=== PATIENT | male | born 1945 | race African-American/Black ===

== ENCOUNTER → 2016-12-15 | Outpatient (CLI) | payer MEDICARE, OTHER ==
[~2016-12-15] VITALS: Ht 177.8 cm; Wt 90.7 kg
[~2016-12-15] MED LIST: ALDACTONE25 MG PO; ALEVE220 MG PO; AMARYL2 MG PO; ASPIRIN325 PO; BAYER CHEWABLE81 MG PO; CARVEDILOL6.25 MG PO; COREG3.125 MG PO; COZAAR 25 MG TA25 MG PO; COZAAR 50 MG TA50 M1 PO; GLUCOPHAGE500 MG PO; HYDROCODONE-APA1 TA1 PO; JANUVIA100 MG PO; JANUVIA25 MG PO; KLOR-CON 1010 MEQ PO; LEVITRA20 MG PO; LISINOPRIL2.5 M1 PO; LISINOPRIL2.5 MG PO; METFORMIN HCL500 MG PO; METHIMAZOLE10 MG PO; MOBIC15 MG PO; MOBIC7.5 MG PO; NEURONTIN 300300 M1 PO; NORCO 10-325 T1 EACH PO; NORCO 7.5-3251 EACH PO; OXYCODONE-ACET1 EACH PO; OXYCODONE-APAP1 EAC6 PO; PACERONE 200 M200 M1 PO; PAROXETINE HCL40 MG PO; PAXIL10 MG; PERCOCET 7.5-31 EAC1 PO; PERCOCET 7.5-31 EACH PO; SOTALOL 120 MG120 M1 PO; TORSEMIDE20 MG PO; TRAMADOL 50 MG50 MG PO; XANAX 0.25 MG0.25 MG PO; XANAX 0.5 MG0.5 MG PO
--- NOTE | ~2016-12-15 | HPC ---
[facility] [place] [address] PAIN MANAGEMENT CONSULTATION Name: CR CAZARES Room #: BASSEM MANUELA Palm#: [id number] Admission: 12/15/16 Attend Phys: Mat Acosat DO Discharge: Date of : 46 Report #: [id number] THIS REPORT FOR: //name// CC: Johnson Acosta DATE OF SERVICE: 12/15/2016 The patient is a very pleasant 71-year-old gentleman well known to pain clinic, being treated for lumbar radiculopathy, history of cervical decompressive laminectomy and neuropathic pain, requiring complex medication management. Comorbidity includes coronary artery disease. Last seen in the pain clinic on 12/13/2015, continued on Percocet 7.5/325 four a day and gabapentin 300 mg b.i.d., meloxicam we suggested using on a nondaily basis in consideration of a history of cardiac disease. The patient returns to pain clinic today noting while medications are providing sufficient analgesia to participate in activities of daily living, he is having increasing axial and lumbar radicular pain. He had a prior lumbar epidural injection some 6 months ago with overall improvement of baseline pain. Last urine drug screen on 08/11/2016 was positive for prescribed medications. PHYSICAL EXAMINATION: Shows a 71-year-old gentleman, alert and oriented to person, place, and time, judged to be a reasonable historian. Vital signs stable as noted on the EMR. Rises from chair using armrest. Gait is tandem though he does have some diffuse tenderness across the low back, mildly antalgic gait, positive straight leg raise on the right. Cervical range of motion is adequate status post decompressive laminectomy. He had fairly tight stenosis and developed some myelopathic symptoms that seems to be resolving somewhat and his gait is better, less ataxia. We reviewed the fact that opiate medications are being used to provide analgesia adequate to support activities of daily living, not attempting to achieve a specific pain score on the 0-10 Visual Analog Scale. The current opiate medications are providing sufficient analgesia to allow the patient to participate in activities of daily living. The patient is not exhibiting any aberrant behavior suggestive of drug diversion. The patient is not having any adverse reactions to medications. The patient is not suffering from daytime somnolence or mental acuity changes. The patient is managing opiate-induced constipation with appropriate ltuf-tas-kqvbmar agents and dietary considerations. The patient was counseled on concern for caution with operating a motor vehicle while using opiate medications. A physical exam was performed and the patient's functional status was evaluated. All patients with back pain were advised against the bed rest greater than 4 days and were advised to return to normal activities. [place] [address] PAIN MANAGEMENT CONSULTATION Name: SAGECR Willie Room #: REG MANUELA Palm#: [id number] Admission: 12/15/16 Attend Phys: Mat Acosta DO Discharge: Date of : 46 Report #: [id number] noted and the treatment plan was reviewed with the patient. All current medications, both prescribed and OTC were reviewed and reconciled on the electronic medical record. Tobacco screening was accomplished and smoking cessation was advised when indicated. BMI was noted and diet/exercise modification was recommended for all patients following outside normal parameters. I reviewed with the patient today their responsibilities to safeguard prescription medications, reviewed their responsibility to utilize medications only as prescribed by the physician. They are to seek and receive pain medications only from 1 physician group ( [facility]). They are to use 1 pharmacy and keep the clinic informed if they change pharmacies. Their responsibilities include making followup visits in a timely fashion and to avoid abrupt discontinuation of medication usage. Their responsibilities further include bringing their medications (bottles from the pharmacy with residual pills) to the visit for possible confirmation of pill counts and the patient understands it is their responsibility to submit to random drug screens to ensure both that the medications prescribed are present, and that no other controlled substances are present. All prescriptions provided today were generated electronically. ASSESSMENT: 1. Status post cervical decompressive laminectomy and neuropathic pain, requiring complex medication management, stable on Percocet 7.5/325 four a day and gabapentin 300 mg b.i.d. Recommended to use meloxicam 15 mg, not more than once daily and suggest not daily use, simply more as needed for muscle of pain. 2. Acute exacerbation of lumbar radiculopathy. RECOMMENDATION: Lumbar epidural injection under fluoroscopy today at L5-S1. We will use 60 mg triamcinolone in consideration of prior diabetes. PROCEDURE: Lumbar epidural injection under fluoroscopy. PROCEDURE NOTE: After both written and informed consent to include risk of spinal cord damage, increased pain, weakness and dural puncture, the patient was taken to the fluoroscopy suite, placed in the prone position. After sterile prep and drape, a skin wheal with lidocaine was raised. A 22-gauge epidural Tuohy needle was inserted in the midline at L5-S1 with good loss to resistance. Negative aspiration for cerebrospinal fluid or blood was noted. Then 1 mL of Omnipaque under biplanar fluoroscopy showed good spread within the epidural space. This was followed with 60 mg of triamcinolone plus 1 mL of 1.5% preservative-free Xylocaine, 0.5 mL Xylocaine was then injected to flush the [facility] [address] [place] [address] PAIN MANAGEMENT CONSULTATION Name: CR CAZARES Room #: [facility].#: [id number] Admission: 12/15/16 Attend Phys: Mat Acosta DO Discharge: Date of : 46 Report #: [id number] needle; it was removed. The patient was monitored for an appropriate period of time and discharged in good and stable condition. <ELECTRONICALLY SIGNED> By: Mat Acosta DO 12/19/16 0811 1526 Mat Acosta DO /nt
[2016-12-15 12:52] VITALS: BP 147/90
== END | disposition home or self-care (01) ==
LOC: PAIN 07:06
DX: M54.16 Radiculopathy, lumbar region (principal); I25.10 Atherosclerotic heart disease of native coronary artery without angina pectoris

== ENCOUNTER → 2017-02-16 | Outpatient (CLI) | payer MEDICARE, OTHER ==
[~2017-02-16] VITALS: Ht 177.8 cm; Wt 91.0 kg
--- NOTE | ~2017-02-16 | HPC ---
[facility] [place] [address] PAIN MANAGEMENT CONSULTATION Name: SAGECR Willie Room #: BASSEM Palm#: [id number] Admission: 02/16/17 Attend Phys: Mat Acosta DO Discharge: Date of : 46 Report #: [id number] THIS REPORT FOR: //name// CC: Johnson Acosta The patient is a very pleasant 72-year-old gentleman, being treated for symptomatic cervical radiculopathy status post decompressive laminectomy, history of lumbar radiculopathy, requiring complex medication management. Last seen in the pain clinic 12/15/2016. The patient was continued on baseline medication including Percocet 7.5/325 up to 4 a day, gabapentin 300 mg b.i.d. We suggested he take Meloxicam on a nondaily basis due to history of coronary artery disease, did do an epidural injection at L5-S1. Prior urine drug screen 08/11/2016, was positive for prescribed medications. He returns to pain clinic today, notes that the epidural injection afforded good relief, greater than 60%, but still has ongoing pain, low back, right leg to the knee. noticing some fairly significant lower extremity edema. He has +2 ballotable edema in lower extremity. He states this has been present for perhaps a couple of months, seems to be getting worse. PHYSICAL EXAMINATION: Shows a 72-year-old gentleman, BMI is 28.8 kg/m2. Blood pressure is modestly elevated at 164/95, pulse 118, and respirations 16. Alert and oriented to person, place and time, judged to be a reasonable historian. Upper extremity strength is generally preserved. Rises from chair using armrest. Generally tandem gait, though he has had some issues with balance in the past, does not seem to be present at this time, though again fairly significant edema in lower extremities, about +2 bilaterally, perhaps a little worse on the right than left. We reviewed the fact that opiate medications are being used to provide analgesia adequate to support activities of daily living, not attempting to achieve a specific pain score on the 0-10 Visual Analog Scale. The current opiate medications are providing sufficient analgesia to allow the patient to participate in activities of daily living. The patient is not exhibiting any aberrant behavior suggestive of drug diversion. The patient is not having any adverse reactions to medications. The patient is not suffering from daytime somnolence or mental acuity changes. The patient is managing opiate-induced constipation with appropriate huyq-nbb-mklnftk agents and dietary considerations. The patient was counseled on concern for caution with operating a motor vehicle while using opiate medications. A physical exam was performed and the patient's functional status was evaluated. All patients with back pain were advised against the bed rest greater than 4 days and were advised to return to normal activities. Pain score assessment was [address] [address] PAIN MANAGEMENT CONSULTATION Name: CR CAZARES Room #: REG Che Palm#: [id number] Admission: 02/16/17 Attend Phys: Mat Acosta DO Discharge: Date of : 46 Report #: [id number] noted and the treatment plan was reviewed with the patient. All current medications, both prescribed and OTC were reviewed and reconciled on the electronic medical record. Tobacco screening was accomplished and smoking cessation was advised when indicated. BMI was noted and diet/exercise modification was recommended for all patients following outside normal parameters. I reviewed with the patient today their responsibilities to safeguard prescription medications, reviewed their responsibility to utilize medications only as prescribed by the physician. They are to seek and receive pain medications only from 1 physician group ( [facility]). They are to use 1 pharmacy and keep the clinic informed if they change pharmacies. Their responsibilities include making followup visits in a timely fashion and to avoid abrupt discontinuation of medication usage. Their responsibilities further include bringing their medications (bottles from the pharmacy with residual pills) to the visit for possible confirmation of pill counts and the patient understands it is their responsibility to submit to random drug screens to ensure both that the medications prescribed are present, and that no other controlled substances are present. All prescriptions provided today were generated electronically. ASSESSMENT: Chronic pain syndrome requiring complex medication management, status post cervical decompressive laminectomy, history of lumbar radiculopathy. RECOMMENDATIONS: 1. Renew Percocet 7.5/325 up to 4 a day, I have taken the liberty of writing for 2 months of current medication. 2. The patient tells me he actually ran out of his gabapentin about 4 days ago, I will have him hold gabapentin for another month and ask him to hold Meloxicam as well. If in 30 days his pain is increased, I will have him back his "4-week release Percocet prescription" for reevaluation. Hopefully; however, pain will remain relatively unchanged and edema may improve. If he discontinues Meloxicam and gabapentin for 4 weeks and lower extremity edema remains problematic, we will have him follow up with his physician for further workup. By: [id number] Mat Acosta, /nt
[2017-02-16 11:07] VITALS: BP 164/95
== END | disposition home or self-care (01) ==
LOC: PAIN 12-25 07:49
DX: G89.4 Chronic pain syndrome (principal); M54.16 Radiculopathy, lumbar region; Z98.890 Other specified postprocedural states; F11.20 Opioid dependence, uncomplicated; F17.210 Nicotine dependence, cigarettes, uncomplicated

== ENCOUNTER → 2017-04-15 | Outpatient (CLI) | payer MEDICARE, OTHER ==
[~2017-04-15] VITALS: Ht 175.3 cm; Wt 88.7 kg
--- NOTE | ~2017-04-15 | HPC ---
[facility] [place] [address] PAIN MANAGEMENT CONSULTATION Name: CR CAZARES Room #: REG [facility] Arpita#: [id number] Admission: 04/15/17 Attend Phys: Davide Jha MD Discharge: Date of : 46 Report #: [id number] THIS REPORT FOR: //name// CC: Davide Mckenna DATE OF SERVICE: 04/15/2017 FOLLOWUP COMPLAINT: "Here for medications." FOLLOWUP HISTORY: The patient is a 72-year-old gentleman who has been seen in the pain clinic because of lumbar radiculopathy. He has undergone treatment. He finds that his pain has improved since the initial visit. Pain in his low back area has improved. He rates his pain as 5-6 at this point; standing, walking and lifting can exacerbate this pain. He is still having some pain down into the right leg to the level of the knee. He feels that the medications are efficacious. There are to any problems with sedation or confusion. He is able to engage in activities of daily living and do more with the medications than he is without them. PHYSICAL EXAMINATION: Blood pressure 122/86, pulse 113, respiratory rate 16, room air saturation is 98%. Height 5 feet 9 inches, weight 88 kilograms, BMI is 28. The patient has not fallen since we saw him last. He feels that he has had greater than 50% improvement in his pain. IMPRESSION: 1. Lumbar radiculopathy, improved with epidural steroid injection. 2. Status post cervical decompression, laminectomy and neuropathic pain, requiring complex medication management. RECOMMENDATIONS: We discussed treatment options with the patient. A script for his medication of Percocet has been written. The patient will follow up in the future with Dr. Acosta. We would like to thank you for letting us participate in his care. We hope he continues to improve. By: [id number] Davide Jha MD /nt
[2017-04-15 08:45] VITALS: BP 122/86
== END | disposition home or self-care (01) ==
LOC: PAIN 06:07
DX: M54.16 Radiculopathy, lumbar region (principal); F17.200 Nicotine dependence, unspecified, uncomplicated; G89.29 Other chronic pain; Z98.890 Other specified postprocedural states

== ENCOUNTER → 2017-06-19 | Outpatient (CLI) | payer MEDICARE, OTHER ==
[~2017-06-19] VITALS: Ht 177.8 cm; Wt 87.1 kg
[~2017-06-19] MED LIST changes: +LASIX 40 MG TAB40 M2 PO
--- NOTE | ~2017-06-19 | HPC ---
[facility] [address] [address] PAIN MANAGEMENT CONSULTATION Name: SAGECR Willie Room #: BASSEM MANUELA Palm#: [id number] Admission: 06/19/17 Attend Phys: Mat Acosta DO Discharge: Date of : 46 Report #: [id number] THIS REPORT FOR: //name// CC: Johnson Acosta The patient is a 72-year-old gentleman known to the pain clinic, typically treated for lumbar radiculopathy, history of cervical decompressive laminectomy for myelopathic symptoms requiring complex medication management. 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 Returns to pain clinic today. He saw my partner Dr. Ty Jha back in March. He has continued on his baseline narcotic including Percocet 7.5/325 four a day, gabapentin 300 mg b.i.d., and meloxicam p.r.n. His pain today is 6-7 on a VAS. PHYSICAL EXAMINATION: Vital signs are stable as noted on the EMR. Rises from chair using armrest. Gait is tandem. He is lucid. Alert and oriented. He is seen in the company of his today, he was supportive. She had been involved in a significant motor vehicle accident with some cervical cord trauma. She is actually doing better. The patient states medications are helpful enabling him to participate in activities of daily living. Chronic low back, right leg pain remains somewhat problematic. He has not had a fall since we last saw him. He continues to smoke and was counseled regarding same. We reviewed the fact that opiate medications are being used to provide analgesia adequate to support activities of daily living, not attempting to achieve a specific pain score on the 0-10 Visual Analog Scale. The current opiate medications are providing sufficient analgesia to allow the patient to participate in activities of daily living. The patient is not exhibiting any aberrant behavior suggestive of drug diversion. The patient is not having any adverse reactions to medications. The patient is not suffering from daytime somnolence or mental acuity changes. The patient is managing opiate-induced constipation with appropriate sxzy-lmz-mdrxxgc agents and dietary considerations. The patient was counseled on concern for caution with operating a motor vehicle while using opiate medications. A physical exam was performed and the patient's functional status was evaluated. All patients with back pain were advised against the bed rest greater than 4 days and were advised to return to normal activities. Pain score assessment was noted and the treatment plan was reviewed with the patient. All current medications, both prescribed and OTC were reviewed and reconciled on the electronic medical record. Tobacco screening was accomplished and smoking cessation was advised when indicated. BMI was noted and diet/exercise modification was recommended for all patients following outside normal parameters. [address] [address] PAIN MANAGEMENT CONSULTATION Name: SAGECR Willie Room #: REG MANUELA Palm#: [id number] Admission: 06/19/17 Attend Phys: Mat Acosta DO Discharge: Date of : 46 Report #: [id number] I reviewed with the patient today their responsibilities to safeguard prescription medications, reviewed their responsibility to utilize medications only as prescribed by the physician. They are to seek and receive pain medications only from 1 physician group ( [facility]). They are to use 1 pharmacy and keep the clinic informed if they change pharmacies. Their responsibilities include making followup visits in a timely fashion and to avoid abrupt discontinuation of medication usage. Their responsibilities further include bringing their medications (bottles from the pharmacy with residual pills) to the visit for possible confirmation of pill counts and the patient understands it is their responsibility to submit to random drug screens to ensure both that the medications prescribed are present, and that no other controlled substances are present. All prescriptions provided today were generated electronically. ASSESSMENT: Symptomatic lumbar radiculopathy, history of cervical decompressive laminectomy for myelopathic symptoms requiring high risk / complex medication management. RECOMMENDATIONS: Continue current medications unchanged, again last urine drug screen 08/11/2016, positive for prescribed medications. I have taken the liberty of writing for 2 months of current medication including Percocet 7.5/325 one tablet up to 4 times a day. <ELECTRONICALLY SIGNED> By: Mat Acosta DO 06/24/17 0755 [id number] 1237 Mat Acosta DO /nt
[2017-06-19 12:48] VITALS: BP 136/90
== END | disposition home or self-care (01) ==
LOC: PAIN 07:19
DX: Z76.0 Encounter for issue of repeat prescription (principal); M54.16 Radiculopathy, lumbar region; G89.29 Other chronic pain; F17.210 Nicotine dependence, cigarettes, uncomplicated; Z79.891 Long term (current) use of opiate analgesic; Z98.890 Other specified postprocedural states

== ENCOUNTER → 2017-08-27 | Outpatient (CLI) | payer MEDICARE, OTHER ==
[~2017-08-27] VITALS: Ht 177.8 cm; Wt 90.9 kg
--- NOTE | ~2017-08-27 | HPC ---
[facility] [address] [place] [address] PAIN MANAGEMENT CONSULTATION Name: CR CAZARES Room #: BASSEM Palm#: [id number] Admission: 08/27/17 Attend Phys: Mat Acosta DO Discharge: Date of : 46 Report #: [id number] THIS REPORT FOR: //name// CC: Johnson Acosta The patient is a 72-year-old gentleman being treated for symptomatic lumbar radiculopathy, history of cervical decompressive laminectomy for myelopathic component, requiring high risk complex medication management. The patient was last seen in the pain clinic 06/19/2017, continued on Percocet 7.5/325. He takes up to 4 a day. Last urine drug screen 08/11/2016, was positive for prescribed medications. He returns to pain clinic today noting medications continue to provide sufficient analgesia to participate in activities of daily living, but he is having some increasing pain in the left low back and leg. He also tells me concerningly that he is developing a little stool incontinence. He states when he urinates, he will sometimes have a small seepage of fecal material. He states he is not having any insensate incontinence per se, he still is aware of the sensation that he has to have a bowel movement, he does not have any saddle anesthesia. I am not entirely clear what to make of this. He notes that the ongoing left lumbar radicular pain is increasing, prior injection back in November did afford sonme 60 percent relief for several months. PHYSICAL EXAMINATION: Otherwise shows a pleasant 72-year-old gentleman, BMI is 28.8 kilograms per meter squared. Modestly limited cervical range of motion after his cervical surgery. VAS pain score is 9 today. Blood pressure is 158/81, pulse 99, and respirations 16. Rises from chair using armrest. Slight decreased left plantar flexion strength and lower extremity flexion strength. Positive straight leg raise on the left at 30 degrees. Again, Achilles and patellar reflexes are diminished on the left, but no hyporeflexia is noted. ASSESSMENT: Symptomatic lumbar radiculopathy by clinical exam and history. The patient is status post cervical decompressive laminectomy, requiring high risk complex medication management. RECOMMENDATION: 1. Continue Percocet 7.5/325 up to 4 a day, I have taken the liberty of writing for 2 months of current medication. 2. Acute exacerbation of lumbar radicular symptoms. We will repeat epidural injection under fluoroscopy today at L5-S1. 3. 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 If he continues unabated with no obvious other medical issues, we will need to repeat an MRI of the lumbar spine to make sure we are not overlooking any treatalbe causes of myelopathic type symptoms. [address] [address] PAIN MANAGEMENT CONSULTATION Name: CR CAZARES Room #: REG MANUELA Palm#: [id number] Admission: 08/27/17 Attend Phys: Mat Acosta DO Discharge: Date of : 46 Report #: [id number] PROCEDURE: Lumbar epidural injection under fluoroscopy. PROCEDURE NOTE: After both written and informed consent to include risk of spinal cord damage, increased pain, weakness and dural puncture, the patient was taken to the fluoroscopy suite, placed in the prone position. After sterile prep and drape, a skin wheal with lidocaine was raised. A 22-gauge epidural Tuohy needle was inserted in the midline at L5-S1 with good loss to resistance. Negative aspiration for cerebrospinal fluid or blood was noted. Then 1 mL of Omnipaque under biplanar fluoroscopy showed good spread within the epidural space. This was followed with 80 mg of triamcinolone plus 1 mL of 1.5% preservative-free Xylocaine, 0.5 mL Xylocaine was then injected to flush the needle; it was removed. The patient was monitored for an appropriate period of time and discharged in good and stable condition. <ELECTRONICALLY SIGNED> By: Mat Acosta DO 08/28/17 0949 [id number] [id number] Mat Acosta DO /nt
[2017-08-27 13:11] VITALS: BP 158/81
== END | disposition home or self-care (01) ==
LOC: PAIN 07:11
DX: M54.16 Radiculopathy, lumbar region (principal); Z98.890 Other specified postprocedural states; F17.200 Nicotine dependence, unspecified, uncomplicated

== ENCOUNTER → 2017-11-06 | Outpatient (CLI) | payer MEDICARE ==
[~2017-11-06] VITALS: Ht 177.8 cm; Wt 84.4 kg
[~2017-11-06] MED LIST changes: +FLOMAX0.4 MG PO; +HYDRALAZINE HC100 MG PO; +ISOSORBIDE DINI20 M2 PO; +METOPROLOL SUCC50 MG PO; +PRILOSEC 20 MG20 MG PO; +REPAGLINIDE2 MG PO; +XARELTO20 MG PO
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
[2017-11-06 10:31] VITALS: BP 116/70
== END ==
LOC: PAIN 07:39
DX: M54.16 Radiculopathy, lumbar region (principal); M50.01 Cervical disc disorder with myelopathy, high cervical region; Z98.890 Other specified postprocedural states

== ENCOUNTER → 2018-01-21 | Outpatient (CLI) | payer MEDICARE ==
[~2018-01-21] VITALS: Ht 177.8 cm; Wt 82.1 kg
--- NOTE | ~2018-01-21 | HPC ---
[facility] [address] [place] [address] PAIN MANAGEMENT CONSULTATION Name: CR CAZARES Room #: BASSEM MANUELA Palm#: [id number] Admission: 01/21/18 Attend Phys: Mat Acosta DO Discharge: Date of : 46 Report #: [id number] THIS REPORT FOR: //name// CC: Johnson Acosta The patient is a 73-year-old gentleman last seen in the pain clinic on 11/06/2017. The patient was continued on Percocet 7.5/325 four a day for ongoing cervical radicular symptoms along with axial back pain. The patient unfortunately fell last with acute exacerbation of right low back pain. He prior had relatively urgent cervical decompressive laminectomy when he was becoming somewhat myelopathic. He still has a little bit of an ataxic gait. Rates the pain as an 8-9 on a VAS at present. He is on Xarelto for an irregular heartbeat. Last random drug screen on 11/06/2017 was positive for prescribed medications. We reviewed the fact that opiate medications are being used to provide analgesia adequate to support activities of daily living, not attempting to achieve a specific pain score on the 0-10 Visual Analog Scale. The current opiate medications are providing sufficient analgesia to allow the patient to participate in activities of daily living. The patient is not exhibiting any aberrant behavior suggestive of drug diversion. The patient is not having any adverse reactions to medications. The patient is not suffering from daytime somnolence or mental acuity changes. The patient is managing opiate-induced constipation with appropriate xbwq-wwy-wzuuprl agents and dietary considerations. The patient was counseled on concern for caution with operating a motor vehicle while using opiate medications. A physical exam was performed and the patient's functional status was evaluated. All patients with back pain were advised against the bed rest greater than 4 days and were advised to return to normal activities. Pain score assessment was noted and the treatment plan was reviewed with the patient. All current medications, both prescribed and OTC were reviewed and reconciled on the electronic medical record. Tobacco screening was accomplished and smoking cessation was advised when indicated. BMI was noted and diet/exercise modification was recommended for all patients following outside normal parameters. I reviewed with the patient today their responsibilities to safeguard prescription medications, reviewed their responsibility to utilize medications only as prescribed by the physician. They are to seek and receive pain medications only from 1 physician group ( [facility]). They are to use 1 pharmacy and keep the clinic informed if they change pharmacies. Their responsibilities include making followup visits in a timely fashion and to avoid abrupt discontinuation of medication usage. Their responsibilities further include bringing their medications (bottles from the pharmacy with residual pills) to the visit for possible confirmation of pill counts and the patient understands it is their responsibility to submit to random drug screens to [address] [address] PAIN MANAGEMENT CONSULTATION Name: SAGECR Willie Room #: REG MANUELA Palm#: [id number] Admission: 01/21/18 Attend Phys: Mat Acosta DO Discharge: Date of : 46 Report #: [id number] ensure both that the medications prescribed are present, and that no other controlled substances are present. All prescriptions provided today were generated electronically. Physical examination shows 73-year-old gentleman, BMI is 26 kilograms per meter squared. Functional pain impact score is 20/70. Blood pressure is 107/62, pulse 95 and respirations 16. He uses a cane for balance. Medication list was reconciled, he is treated for hypertension. Opiate consent to treat contract was signed on 06/12/2016. He scores in the low risk assessment, prior concern for ethanol use in the distant past. 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 ASSESSMENT: Symptomatic axial back pain, history of myelopathy, status post cervical decompressive laminectomy requiring complex medication management. RECOMMENDATIONS: Continue Percocet 7.5/325 four a day. I have taken the liberty of writing for 2 months of current medication. Follow up at that time or earlier if needed. <ELECTRONICALLY SIGNED> By: Mat Acosta DO 01/22/18 0704 [id number] [id number] Mat Acosta DO /nt
[2018-01-21 12:37] VITALS: BP 107/62
== END ==
LOC: PAIN 06:58
DX: M54.12 Radiculopathy, cervical region (principal); M54.5 Low back pain; Z79.899 Other long term (current) drug therapy

== ENCOUNTER → 2018-05-20 | Outpatient (CLI) | payer MEDICARE ==
[~2018-05-20] VITALS: Ht 177.8 cm; Wt 86.5 kg
[~2018-05-20] MED LIST changes: -PRILOSEC 20 MG20 MG PO
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
[2018-05-20 10:35] VITALS: BP 106/62
== END ==
LOC: PAIN 07:07
DX: M54.16 Radiculopathy, lumbar region (principal); M54.5 Low back pain; M48.061 Spinal stenosis, lumbar region without neurogenic claudication; G89.4 Chronic pain syndrome; Z79.899 Other long term (current) drug therapy

== ENCOUNTER → 2018-05-24 | Outpatient (CLI) | payer MEDICARE ==
[~2018-05-24] VITALS: Ht 177.8 cm; Wt 84.8 kg
--- NOTE | ~2018-05-24 | HPC ---
[address] [place] [address] PAIN MANAGEMENT CONSULTATION Name: CR CAZARES Room #: BASSEM Palm#: [id number] Admission: 05/24/18 Attend Phys: Mat Acosta DO Discharge: Date of : 46 Report #: [id number] THIS REPORT FOR: //name// CC: Johnson Acosta DATE OF SERVICE: 05/24/2018 The patient is a very pleasant 73-year-old gentleman, prior seen for chronic medication management 05/20/2018, continued on baseline narcotic unchanged. He had acute exacerbation of lumbar radicular symptoms. We elected to proceed with epidural injection off Xarelto 3 days. The patient presents to pain clinic today for said injection. Prior epidural injection in 08/2017 afforded very good relief for a number of months. ASSESSMENT: Symptomatic lumbar radiculopathy by clinical exam and history in a gentleman whose presentation today is unchanged from 05/20/2018. RECOMMENDATION: Procedure lumbar epidural injection under fluoroscopy, resume Xarelto tonight. PROCEDURE: Lumbar epidural injection under fluoroscopy. PROCEDURE NOTE: After both written and informed consent to include risk of spinal cord damage, increased pain, weakness and dural puncture, the patient was taken to the fluoroscopy suite, placed in the prone position. After sterile prep and drape, a skin wheal with lidocaine was raised. A 22-gauge epidural Tuohy needle was inserted in the midline at L5-S1 with good loss to resistance. Negative aspiration for cerebrospinal fluid or blood was noted. Then 1 mL of Omnipaque under biplanar fluoroscopy showed good spread within the epidural space. This was followed with 80 mg of triamcinolone plus 1 mL of 1.5% preservative-free Xylocaine, 0.5 mL Xylocaine was then injected to flush the needle; it was removed. The patient was monitored for an appropriate period of time and discharged in good and stable condition. <ELECTRONICALLY SIGNED> By: Mat Acosta DO 05/26/18 0734 [id number] 1531 Mat Acosta DO /nt
[2018-05-24 10:43] VITALS: BP 119/67
== END | disposition home or self-care (01) ==
LOC: PAIN 07:57
DX: M54.16 Radiculopathy, lumbar region (principal); G89.29 Other chronic pain; F17.210 Nicotine dependence, cigarettes, uncomplicated; Z79.891 Long term (current) use of opiate analgesic; Z79.899 Other long term (current) drug therapy

== ENCOUNTER → 2018-09-29 | Outpatient (CLI) | payer MEDICARE ==
[~2018-09-29] VITALS: Ht 177.8 cm; Wt 84.8 kg
[~2018-09-29] MED LIST changes: +PRILOSEC 20 MG20 MG PO
[2018-09-29 10:26] VITALS: BP 132/67
== END | disposition home or self-care (01) ==
LOC: PAIN 07:21
DX: M54.16 Radiculopathy, lumbar region (principal); G89.29 Other chronic pain; F17.210 Nicotine dependence, cigarettes, uncomplicated; Z79.899 Other long term (current) drug therapy; Z79.01 Long term (current) use of anticoagulants; Z79.891 Long term (current) use of opiate analgesic; Z98.890 Other specified postprocedural states

== ENCOUNTER → 2018-12-08 | Outpatient (CLI) | payer MEDICARE ==
[~2018-12-08] VITALS: Ht 177.8 cm; Wt 84.8 kg
[2018-12-08 09:46] VITALS: BP 130/76
--- NOTE | 2018-12-08 09:49 | NUR ---
Pain Clinic Assessment: 1. History of Osteoarthritis: YES History of Rheumatoid Arthritis: Not Applicable 2. Height: 5 ft. 10 in. 177.8 cm. Weight: 187.0 lb. oz. 84.823 kg. Patient's BMI: 26.8 3. Vital Signs: BP: 130/76 Pulse: 63 Resp: 14 Temp: 02 Sat: 99 ECG Mon: 4. Pain Intensity: 8 5. Fall Risk: Dizziness: N Needs help standing or walking: N Fallen in the last 3 months: N Fall risk comments: 6. Patient on Blood Thinner: xarelto 7. History of Hypertension: Y 8. Opioid Therapy greater than 6 weeks: Y Opiate Contract Signed: 06/12/16 9. Risk Assessment Tool Provided: 3 LOW RISK 10. Functional Assessment Tool: / 11. Recreational Drug Use: Never Drug Type: Tobacco Use: Current Every Day Smoker Tobacco Type: Cigarettes Amount or Packs/day: How Many Years: Alcohol Use: Past use Frequency: Quant:
--- NOTE | 2018-12-09 07:37 | HPC ---
[facility] [address] [place] [address] PAIN MANAGEMENT CONSULTATION Name: CR CAZARES Room #: BASSEM Palm#: [id number] Admission: 12/08/18 Attend Phys: Brie Arroyo Discharge: Date of : 47 Report #: [id number] THIS REPORT FOR: //name// CC: Brie Arroyo Johnson Clarisa DATE OF SERVICE: 12/08/2018 CHIEF COMPLAINT: Low back pain. HISTORY OF PRESENT ILLNESS: The patient returns to the pain clinic today, a very pleasant 73-year-old gentleman for his chronic back pain. He had a lumbar epidural steroid injection in September and tells me that he received at least 80% relief, still ongoing for several months. He tells me that that his pain score still has an average of 8 out of 10 despite telling me that his pain is significantly better from his epidural. He said usually that last about 4 months before he would need another injection. So, today he is here for a refill of his oxycodone for his low back, hip pain, leg pain. He tells me it is worse when he is standing still or walking. Shoveling snow recently has increased his back pain, but his medications are very helpful. He denies any constipation or daytime sleepiness. ALLERGIES: No known drug allergies. LIST OF CURRENT MEDICATIONS: Oxycodone 7.5/325 up to 4 times a day, gabapentin 300 mg b.i.d., Prilosec 20 mg daily, lisinopril 2.5 mg at bedtime, metoprolol 50 mg daily, spironolactone 25 mg daily, isosorbide 20 mg daily, Xarelto 20 mg at dinner, hydralazine 100 mg 3 times a day, Lasix 20 mg daily, Xanax 0.5 mg twice a day, Glucophage 500 mg b.i.d., Januvia 100 mg daily, Amaryl 2 mg b.i.d. and Paxil 40 mg at bedtime. PQRS: 1. The patient has a history of osteoarthritis in his knees and his back. Denies rheumatoid arthritis. 2. Height is 5 feet 10 inches, weight is 187, BMI is 26.8. 3. Vital signs: Blood pressure 130/76, pulse of 63, respirations 14, oxygen sat 99%. 4. Pain score is 8 out of 10. 5. Fall risk: He denies dizziness. Does not need help walking or standing, has not fallen in the last 3 months. 6. The patient does take Xarelto and has a history of taking antihypertensive medicines. 7. Opioid therapy is greater than 6 weeks, therefore, an opioid signed contract is on the chart. 8. His risk assessment tool is low. His functional assessment is 56/70. 9. Recreational drug use, he denies. He does currently smoke cigarettes and he [address] [address] PAIN MANAGEMENT CONSULTATION Name: CR CAZARES Room #: REG Che Palm#: [id number] Admission: 12/08/18 Attend Phys: Brie Arroyo Discharge: Date of : 47 Report #: [id number] does not drink alcohol on a daily basis. We did check the prescription monitoring system. The patient is fairly appropriate with his medications from Dr. Jha, no aberrant behavior noted. He tells me that he does safeguard his medications. There is a drug screen on the chart that is appropriate. PHYSICAL EXAMINATION: GENERAL: This is a well-developed, well-nourished black gentleman who appears his stated age. He is alert and orientated x 3. His affect is appropriate. His speech is fluent. He is a good historian. HEENT: Normocephalic, atraumatic. Extraocular eye muscles are intact. NECK: He is without adenopathy or JVD in his neck. EXTREMITIES: His upper muscle strength judged to be 5/5 in upper extremities bilaterally. He is without kyphosis, lordosis, or scoliosis. He does complain of some discomfort in his lower back that radiates into bilateral hips and legs. The patient does walk with an antalgic gait. ASSESSMENT: 1. Chronic pain, treated with complex medical management using opioids. 2. Lumbar radiculopathy. 3. Atrial tachycardia. 4. Congestive heart failure. 5. Cardiomegaly. 6. Renal insufficiency. 7. Diabetes. 8. Anxiety. 9. Chronic pain syndrome. 10. Depression. 11. Chronic low back pain. We reviewed the fact that opiate medications are being used to provide analgesia adequate to support activities of daily living, not attempting to achieve a specific pain score on the 0-10 Visual Analog Scale. The current opiate medications are providing sufficient analgesia to allow the patient to participate in activities of daily living. The patient is not exhibiting any aberrant behavior suggestive of drug diversion. The patient is not having any adverse reactions to medications. The patient is not suffering from daytime somnolence or mental acuity changes. The patient is managing opiate-induced constipation with appropriate hcnm-mjh-mwtzbdo agents and dietary considerations. The patient was counseled on concern for caution with operating a motor vehicle while using opiate medications. A physical exam was performed and the patient's functional status was evaluated. All patients with back pain were advised against the bed rest greater than 4 days and were advised to return to normal activities. Pain score assessment was [address] [place] [address] PAIN MANAGEMENT CONSULTATION Name: CR CAZARES Room #: REG [facility].#: [id number] Admission: 12/08/18 Attend Phys: Brie ANU Arroyo Discharge: Date of : 47 Report #: [id number] noted and the treatment plan was reviewed with the patient. All current medications, both prescribed and OTC were reviewed and reconciled on the electronic medical record. Tobacco screening was accomplished and smoking cessation was advised when indicated. BMI was noted and diet/exercise modification was recommended for all patients following outside normal parameters. I reviewed with the patient today their responsibilities to safeguard prescription medications, reviewed their responsibility to utilize medications only as prescribed by the physician. They are to seek and receive pain medications only from 1 physician group ( [facility]). They are to use 1 pharmacy and keep the clinic informed if they change pharmacies. Their responsibilities include making followup visits in a timely fashion and to avoid abrupt discontinuation of medication usage. Their responsibilities further include bringing their medications (bottles from the pharmacy with residual pills) to the visit for possible confirmation of pill counts and the patient understands it is their responsibility to submit to random drug screens to ensure both that the medications prescribed are present, and that no other controlled substances are present. All prescriptions provided today were generated electronically. PLAN: 1. We discussed treatment options with the patient today. He tells me that the Percocet 7.5 has been helping him reduce his pain and be as active as he is able. He would like a continuation this medicine. Script was given today for #120 with fills for today and in 4 weeks. 2. The patient tells me that he does take the gabapentin twice a day, but does not need any refills of this medication today. 3. We discussed appointments for 2 months. He will call to let us know if he needs an injection at that time or medication refills. He typically gets lumbar epidural steroid injections every 4 months, which would be about that timeframe. The patient is seen in collaboration today with Dr. Inder Jha. <ELECTRONICALLY SIGNED> By: Brie Arroyo 12/09/18 0737 [id number] Brie Arroyo /nt
== END ==
LOC: PAIN 07:00
DX: M54.16 Radiculopathy, lumbar region (principal); G89.4 Chronic pain syndrome; I50.9 Heart failure, unspecified; I51.7 Cardiomegaly; I47.1 Supraventricular tachycardia; E11.9 Type 2 diabetes mellitus without complications; N28.9 Disorder of kidney and ureter, unspecified; F32.9 Major depressive disorder, single episode, unspecified; F41.9 Anxiety disorder, unspecified; Z79.891 Long term (current) use of opiate analgesic; Z79.899 Other long term (current) drug therapy

== ENCOUNTER → 2019-02-11 | Outpatient (CLI) | payer MEDICARE ==
[~2019-02-11] VITALS: Ht 177.8 cm; Wt 84.8 kg
--- NOTE | ~2019-02-11 | HPC ---
[facility] [place] [address] [place] [address] PAIN MANAGEMENT CONSULTATION Name: CR CAZARES Room #: REG MANUELA Palm#: [id number] Admission: 02/11/19 ������������������ Attend Phys: Davide Jha MD Discharge: ������������������ Date of : 47 Report #: [id number] THIS REPORT FOR: //name// CC: Davide Mckenna DATE OF SERVICE: 02/11/2019 CHIEF COMPLAINT: Here for treatment. I would like him to have another epidural injection. HISTORY: The patient is a 74-year-old gentleman who has been followed in the pain clinic because of chronic pain. He has undergone epidural steroid injections in the past. They have been beneficial. He is experiencing pain at this juncture that is radiating down into the lower portion of his back involving both the left and the right side. Describes it as severe in intensity. Radiates down to his ankle. Notes that the pain has been aching, sharp and shooting. Rates it as 7/10. Pain is exacerbated when he is standing still, walking can be problematic. It is usually worse when he wakes up in the morning. It improves with his use of medication. Sitting can be beneficial as well. ALLERGIES: No known drug allergies. CURRENT MEDICATIONS: Oxycodone 7.5 mg 1 p.o. q.i.d., gabapentin 300 mg b.i.d., Prilosec 20 mg daily, lisinopril 2.5 mg at bedtime, metoprolol 50 mg daily, spironolactone 25 mg daily, isosorbide 20 mg daily, Xarelto 20 mg at dinner, hydralazine 100 mg 3 times daily, Lasix 20 mg daily, Xanax 0.5 mg b.i.d., Glucophage 500 mg b.i.d., Januvia 100 mg, Amaryl 2 mg b.i.d., and Paxil 40 mg at bedtime. PAIN CLINIC ASSESSMENT/PQRS: 1. The patient has a history of osteoarthritis involving his knees and his back. Denies rheumatoid arthritis. 2. Height 5 feet 10 inches, weight 187 pounds, BMI is 26.8. 3. Vital Signs: Blood pressure 102/70, pulse 77, respiratory rate 16, room air saturation 98%. 4. Pain intensity 05/25. 5. Fall risk. The patient has not fallen in the last 3 months. 6. Blood thinner. The patient is on Xarelto and has stopped taking that medication. 7. Hypertension. 8. Opioid greater than 6 weeks. The patient receives medications through the [facility]. 9. Functional assessment tool 56/70. 10. Risk assessment tool, low for opioid use. [address] [address] PAIN MANAGEMENT CONSULTATION Name: CR CAZARES Room #: REG CLChe Palm#: [id number] Admission: 02/11/19 ������������������ Attend Phys: Davide Jha MD Discharge: ������������������ Date of : 47 Report #: [id number] 11. Recreational drug use. The patient denies use of recreational drugs. 12. Tobacco: The patient smokes one-half pack of cigarettes per day. 13. Alcohol. The patient denies frequent use of alcoholic beverages. PHYSICAL EXAMINATION: GENERAL: The patient is a well-developed, well-nourished black male. He appears his stated age. He is alert and oriented x 3. Affect is appropriate. Speech is fluent. HEENT: Normocephalic, atraumatic. Extraocular eye muscles intact. Sclerae nonicteric. Mucous membranes moist. NECK: Without adenopathy or JVD. The patient has complaint of discomfort in his upper back and neck. He has had neck surgery. HEART: Regular rate with history of irregular beats. EXTREMITIES: Deep tendon reflexes +3 at the biceps. Lower extremities, the patient has pain and discomfort in lower portion of his back with pain is radiating down into his legs involving the L5-S1 dermatomal distribution. He has a perception of some weakness in the lower extremities. IMPRESSION: 1. Chronic pain treated with complex medical management using opioids. 2. Lumbar radiculopathy involving the right L5-S1 dermatomal distribution. 3. Atrial tachycardia. 4. Congestive heart failure. 5. Cardiomegaly. 6. Renal insufficiency. 7. Diabetes. 8. Anxiety. 9. Chronic pain syndrome. 10. Depression. 11. Heart rhythm problems. 12. Chronic low back pain. RECOMMENDATIONS: We discussed treatment options with the patient. Risks and benefits of an epidural steroid injection were again reviewed. Possible complications of the procedure, which could include but are not limited to infection, worsening pain, no improvement in pain, spinal headache, and nerve trauma were discussed and the patient elects to proceed. PROCEDURE NOTE: The patient was taken to the procedure area. He was assisted in getting on the examination table. His back was sterilely prepped with a Betadine solution. Fluoroscopy using anterior, posterior as well as lateral viewing were implemented. A pillow was placed under his abdomen to bolster him and improve positioning. His back was then infiltrated at L5-S1 through a midline approach with 0.25% bupivacaine. A 17-gauge Tuohy with loss of resistance technique using the right paramedian approach was undertaken. Aspiration was negative. A total of 80 mg Depo-Medrol, 40 mg triamcinolone and [address] [place] [address] PAIN MANAGEMENT CONSULTATION Name: CR CAZARES Willie Room #: REG [facility]#: [id number] Admission: 02/11/19 ������������������ Attend Phys: Davide Jha MD Discharge: ������������������ Date of : 47 Report #: [id number] 2 mL of 0.25% bupivacaine was injected. The patient tolerated the procedure well. There were no complications. He remained in the pain clinic for an appropriate amount of time. A total of about 20 seconds fluoroscopy time was used. The patient's pain was 0 at the time of discharge. We would like to thank you for letting us participate in his care. We hope he continues to improve. ��������������������������������������������� ���������������������������������������� By: ��������������������������������������������� 0818 1237 Davide Jha MD /nt
[2019-02-11 09:56] VITALS: BP 102/70
--- NOTE | 2019-02-11 10:03 | NUR ---
Pain Clinic Assessment: 1. History of Osteoarthritis: YES History of Rheumatoid Arthritis: Not Applicable 2. Height: 5 ft. 10 in. 177.8 cm. Weight: 187.0 lb. oz. 84.823 kg. Patient's BMI: 26.8 3. Vital Signs: BP: 102/70 Pulse: 77 Resp: 16 Temp: 02 Sat: 98 ECG Mon: 4. Pain Intensity: 7 5. Fall Risk: Dizziness: N Needs help standing or walking: N Fallen in the last 3 months: N Fall risk comments: 6. Patient on Blood Thinner: xarelto 7. History of Hypertension: Y 8. Opioid Therapy greater than 6 weeks: Y Opiate Contract Signed: 06/12/16 9. Risk Assessment Tool Provided: 3 LOW RISK 10. Functional Assessment Tool: 11. Recreational Drug Use: Never Drug Type: Tobacco Use: Current Every Day Smoker Tobacco Type: Cigarettes Amount or Packs/day: 1/2 How Many Years: Alcohol Use: Past use Frequency: Quant:
== END | disposition home or self-care (01) ==
LOC: PAIN 06:48
DX: M54.16 Radiculopathy, lumbar region (principal); Z79.899 Other long term (current) drug therapy; I10 Essential (primary) hypertension; G89.29 Other chronic pain; I47.1 Supraventricular tachycardia; I13.0 Hypertensive heart and chronic kidney disease with heart failure and stage 1 through stage 4 chronic kidney disease, or unspecified chronic kidney disease; E11.22 Type 2 diabetes mellitus with diabetic chronic kidney disease; N18.9 Chronic kidney disease, unspecified; I50.9 Heart failure, unspecified; F32.9 Major depressive disorder, single episode, unspecified; F41.9 Anxiety disorder, unspecified; M54.5 Low back pain; F17.210 Nicotine dependence, cigarettes, uncomplicated

== ENCOUNTER → 2019-04-13 | Outpatient (CLI) | payer MEDICARE ==
[~2019-04-13] VITALS: Ht 177.8 cm; Wt 84.5 kg
[~2019-04-13] MED LIST changes: +BUSPIRONE HCL10 MG PO; +SPIRONOLACTONE25 M1 PO
[2019-04-13 10:29] VITALS: BP 111/64
--- NOTE | 2019-04-13 10:46 | NUR ---
Pain Clinic Assessment: 1. History of Osteoarthritis: YES History of Rheumatoid Arthritis: Not Applicable 2. Height: 5 ft. 10 in. 177.8 cm. Weight: 186.2 lb. oz. 84.460 kg. Patient's BMI: 26.7 3. Vital Signs: BP: 111/64 Pulse: 75 Resp: 14 Temp: 02 Sat: 99 ECG Mon: 4. Pain Intensity: 8 5. Fall Risk: Dizziness: N Needs help standing or walking: N Fallen in the last 3 months: N Fall risk comments: 6. Patient on Blood Thinner: xarelto 7. History of Hypertension: Y 8. Opioid Therapy greater than 6 weeks: Y Opiate Contract Signed: 06/12/16 9. Risk Assessment Tool Provided: 7 mod risk 10. Functional Assessment Tool: 62 11. Recreational Drug Use: Never Drug Type: Tobacco Use: Current Every Day Smoker Tobacco Type: Cigarettes Amount or Packs/day: 0.5 How Many Years: 63 Alcohol Use: Past use Frequency: Quant:
--- NOTE | 2019-04-14 15:24 | HPC ---
[facility] [place] [address] PAIN MANAGEMENT CONSULTATION Name: CR CAZARES Room #: BASSEM Palm#: [id number] Admission: 04/13/19 ������������������ Attend Phys: Brie Arroyo Discharge: ������������������ Date of : 47 Report #: [id number] THIS REPORT FOR: //name// CC: Brie Arroyo Johnson Mckenna DATE OF SERVICE: 04/13/2019 CHIEF COMPLAINT: Low back pain. HISTORY OF PRESENT ILLNESS: This is a very pleasant 74-year-old gentleman who returns to the pain clinic today for his ongoing chronic pain in his lower back and bilateral leg pain. He is here for medication refills. The patient tells me that he had an epidural in January that gave him 60% relief for at least 6-7 weeks, though he continues to have increased pain due to significant yardwork that he is having to do for his . He tells me his pain score today is 8/10. His right leg hurts worse than the left on his lateral part posterior leg to his calf. He also does have some numbness in his feet, though he thinks that is from his diabetes. He does not have any problems with daytime sleepiness. He does take scheduled naps every day, but he does not feel that is associated with his medications and he has no problems with constipation. He would like a refill of his medications today. ALLERGIES: No known drug allergies. MEDICATIONS: Buspirone 10 mg daily, oxycodone 7.5/325 p.r.n., gabapentin 300 mg b.i.d., omeprazole 20 mg daily, lisinopril 2.5 mg at bedtime, metoprolol 50 mg daily, spironolactone 25 mg b.i.d., isosorbide 40 mg t.i.d., Xarelto 20 mg daily, hydralazine 100 mg 3 times a day, Lasix 20 mg daily, Xanax 0.5 mg b.i.d., Glucophage 500 mg b.i.d., Januvia 100 mg daily, Amaryl 2 mg b.i.d. and Paxil 40 mg daily. PQRS: 1. He does have a history of osteoarthritis involving his knees and his back. He denies any rheumatoid arthritis. 2. Height is 5 feet 10 inches, weight is 186. BMI is 26. 3. Vital signs: Blood pressure 111/64, pulse of 75, respirations 14, oxygen sat is 99%. 4. Pain score is 8/10. 5. Fall risk. Denies dizziness, does not need help walking or standing. He has not fallen in the last 3 months. 6. The patient is on blood thinner, Xarelto and also takes medications for hypertension. 7. Opioid therapy is greater than 6 weeks; therefore, an opioid signed contract is on the chart. 8. Risk assessment tool is moderate. Functional assessment is 62. [address] [address] PAIN MANAGEMENT CONSULTATION Name: CR CAZARES Willie Room #: BASSEM Palm#: [id number] Admission: 04/13/19 ������������������ Attend Phys: Brie Arroyo Discharge: ������������������ Date of : 47 Report #: [id number] 9. Recreational drug use, he denies. He is a current smoker of cigarettes, about 1/2 a pack a day and does not drink alcohol. The patient's prescription monitoring system was checked. He is filling appropriately for his medications from Dr. Jha with no aberrant behavior. We will check a drug screen on him randomly in his next visit. The patient tells me he does safeguard all of his medications. PHYSICAL EXAMINATION: GENERAL: This is a well-developed, well-nourished black gentleman who appears his stated age. Placing his pain score today at 7/10. He is alert and orientated and his affect is appropriate and speech is fluent. HEENT: Normocephalic, atraumatic. Extraocular eye muscles are intact. Mucous membranes are moist. NECK: Without adenopathy or JVD. He has had neck surgery and has a well-healed scar. EXTREMITIES: Lower extremity pain that radiates from his lumbar spine down the posterior and lateral aspect of his leg into his calf, numbness in both feet bilaterally. The pain follows the L5-S1 dermatomal distribution. His lower extremity strength is judged to be 5/5 in both extremities with equal muscle tone. He walks with a slightly antalgic gait. IMPRESSION: 1. Chronic pain treated with complex medical management using opioids. 2. Lumbar radiculopathy following the L5-S1 dermatomal distribution. 3. Anxiety. 4. Chronic pain syndrome. 5. Chronic low back pain. We reviewed the fact that opiate medications are being used to provide analgesia adequate to support activities of daily living, not attempting to achieve a specific pain score on the 0-10 Visual Analog Scale. The current opiate medications are providing sufficient analgesia to allow the patient to participate in activities of daily living. The patient is not exhibiting any aberrant behavior suggestive of drug diversion. The patient is not having any adverse reactions to medications. The patient is not suffering from daytime somnolence or mental acuity changes. The patient is managing opiate-induced constipation with appropriate zhos-nam-avjmisr agents and dietary considerations. The patient was counseled on concern for caution with operating a motor vehicle while using opiate medications. A physical exam was performed and the patient's functional status was evaluated. All patients with back pain were advised against the bed rest greater than 4 days and were advised to return to normal activities. Pain score assessment was noted and the treatment plan was reviewed with the patient. All current medications, both prescribed and OTC were reviewed and reconciled on the electronic medical record. Tobacco screening was accomplished and smoking [facility] [address] [place] [address] PAIN MANAGEMENT CONSULTATION Name: CR CAZARES Room #: REG [facility] Palm#: [id number] Admission: 04/13/19 ������������������ Attend Phys: Brie Arroyo Discharge: ������������������ Date of : 47 Report #: [id number] cessation was advised when indicated. BMI was noted and diet/exercise modification was recommended for all patients following outside normal parameters. I reviewed with the patient today their responsibilities to safeguard prescription medications, reviewed their responsibility to utilize medications only as prescribed by the physician. They are to seek and receive pain medications only from 1 physician group ( [facility]). They are to use 1 pharmacy and keep the clinic informed if they change pharmacies. Their responsibilities include making followup visits in a timely fashion and to avoid abrupt discontinuation of medication usage. Their responsibilities further include bringing their medications (bottles from the pharmacy with residual pills) to the visit for possible confirmation of pill counts and the patient understands it is their responsibility to submit to random drug screens to ensure both that the medications prescribed are present, and that no other controlled substances are present. All prescriptions provided today were generated electronically. PLAN: 1. We discussed treatment options with the patient today. The patient finds that the epidural that he had in January was very beneficial. He thinks that he will elect to have another one done in a couple of months. He tells me that it helped at least 60% and only recently started getting worse and attributes that to increased yard work outside. 2. The patient feels that the Percocet is very beneficial. He continues to be on #3 tablets maximum of the day that places him on the 45 morphine milliequivalents per day placing him on the low end of the CDC guidelines; therefore, we will give him 2 months of his medications. Prescriptions given for today and 4-week release. 3. Dr. Jha did come and see the patient and collaborated care today. The patient will call for appointment in 2 months' time. ��������������������������������������������� <ELECTRONICALLY SIGNED> ���������������������������������������� By: Brie Arroyo ��������������������������������������������� 04/14/19 1524 [id number] Brie Arroyo /sunni
== END ==
LOC: PAIN 06:45
DX: M54.17 Radiculopathy, lumbosacral region (principal); G89.4 Chronic pain syndrome; F41.9 Anxiety disorder, unspecified

== ENCOUNTER → 2019-06-10 | Outpatient (CLI) | payer MEDICARE ==
[~2019-06-10] VITALS: Ht 177.8 cm; Wt 79.8 kg
[2019-06-10 09:32] VITALS: BP 104/57
--- NOTE | 2019-06-10 09:43 | NUR ---
Pain Clinic Assessment: 1. History of Osteoarthritis: YES History of Rheumatoid Arthritis: Not Applicable 2. Height: 5 ft. 10 in. 177.8 cm. Weight: 176.0 lb. oz. 79.833 kg. Patient's BMI: 25.3 3. Vital Signs: BP: 104/57 Pulse: 63 Resp: 14 Temp: 02 Sat: 100 ECG Mon: 4. Pain Intensity: 8-9 5. Fall Risk: Dizziness: N Needs help standing or walking: N Fallen in the last 3 months: N Fall risk comments: 6. Patient on Blood Thinner: xarelto 7. History of Hypertension: Y 8. Opioid Therapy greater than 6 weeks: Y Opiate Contract Signed: 06/12/16 9. Risk Assessment Tool Provided: 7 mod risk 10. Functional Assessment Tool: 62 11. Recreational Drug Use: Never Drug Type: Tobacco Use: Current Every Day Smoker Tobacco Type: Amount or Packs/day: How Many Years: Alcohol Use: Past use Frequency: Quant:
--- NOTE | 2019-06-14 07:57 | HPC ---
[facility] [address] [place] [address] PAIN MANAGEMENT CONSULTATION Name: CR CAZARES Room #: [facility] MANUELA Palm#: [id number] Admission: 06/10/19 ������������������ Attend Phys: Brie Arroyo Discharge: ������������������ Date of : 47 Report #: [id number] THIS REPORT FOR: //name// CC: Brie Arroyo Johnson Kbuche DATE OF SERVICE: 06/10/2019 CHIEF COMPLAINT: Low back pain and lumbar radiculopathy. HISTORY OF PRESENT ILLNESS: This is a very pleasant 74-year-old gentleman who returns to the pain clinic today for refill of his medications that he takes for his ongoing low back and bilateral leg pain. He tells me his pain is radiating down his right leg to his calf muscle, that he also has numbness and tingling in his right foot. His left leg has pain to his knee and the posterior thigh area. His pain score today is 8-9, worse with sitting and standing, but better with his medications and better when he has epidurals. He feels like he is about to the point that he is going to request to have another epidural from Dr. Jha. He tells me that these are very beneficial in controlling his pain. His last injection was in January, so it has been several months that he has gotten relief from that injection. ALLERGIES: No known drug allergies. CURRENT LIST OF MEDICATIONS: Buspirone 10 mg daily, oxycodone 7.5/325 up to 4 times a day, omeprazole 40 mg daily, gabapentin 300 mg b.i.d., lisinopril 2.5 mg at bedtime, metoprolol 50 mg daily, Aldactone 25 mg b.i.d., isosorbide 20 mg 3 times a day, Xarelto 20 mg daily, hydralazine 3 times a day, Lasix 20 mg daily, Xanax b.i.d., metformin b.i.d., Januvia daily, glyburide 2 mg b.i.d. and Paxil 40 mg daily. PQRS: 1. He does have a history of osteoarthritis involving his knees and his back. He denies any rheumatoid arthritis. 2. Height is 5 feet 10 inches, weight is 176, BMI is 25. 3. Vital signs: Blood pressure 104/57, pulse is 63, respirations 14, oxygen sat is 100%. 4. Pain score 8-9. 5. Denies dizziness. Does not need help walking or standing, has not fallen in the last 3 months. 6. The patient is on Xarelto and also takes medication for hypertension. 7. Opioid therapy is greater than 6 weeks; therefore, an opioid signed contract is on the chart. 8. Risk assessment tool is moderate. Functional assessment is 62/70. 9. Recreational drug use, he denies. He is a current smoker and does not drink alcohol. [address] [address] PAIN MANAGEMENT CONSULTATION Name: CR CAZARES Room #: REG MANUELA Palm#: [id number] Admission: 06/10/19 ������������������ Attend Phys: Brie Arroyo Discharge: ������������������ Date of : 47 Report #: [id number] According to the prescription monitoring system, the patient is filling appropriately for his medications and he is due for a urine drug screen today, which we will collect. PHYSICAL EXAMINATION: GENERAL: This is a well-developed, well-nourished black gentleman who appears his stated age, placing his current pain score at 8-9. He is alert and orientated. HEENT: Normocephalic, atraumatic. Extraocular eye muscles are intact. Mucous membranes are moist. NECK: Without adenopathy or JVD. EXTREMITIES: Lower extremities, pain radiates from his lumbar spine down the posterior aspect of his right leg involving his calf and numbness in his right foot. Pain also radiates following the L5-S1 dermatomal distribution on the left to the knee. His lower extremity strength is judged to be 5/5 in both extremities with equal strength and tone. He walks with a slightly antalgic gait. Also complains of some tenderness across his lumbar spine. IMPRESSION: 1. Chronic pain treated with complex medical management using opioids. 2. Lumbar radiculopathy following the L5-S1 dermatomal distribution. 3. Anxiety. 4. Chronic pain syndrome. 5. Chronic low back pain. We reviewed the fact that opiate medications are being used to provide analgesia adequate to support activities of daily living, not attempting to achieve a specific pain score on the 0-10 Visual Analog Scale. The current opiate medications are providing sufficient analgesia to allow the patient to participate in activities of daily living. The patient is not exhibiting any aberrant behavior suggestive of drug diversion. The patient is not having any adverse reactions to medications. The patient is not suffering from daytime somnolence or mental acuity changes. The patient is managing opiate-induced constipation with appropriate stvd-hok-aqccjiz agents and dietary considerations. The patient was counseled on concern for caution with operating a motor vehicle while using opiate medications. A physical exam was performed and the patient's functional status was evaluated. All patients with back pain were advised against the bed rest greater than 4 days and were advised to return to normal activities. Pain score assessment was noted and the treatment plan was reviewed with the patient. All current medications, both prescribed and OTC were reviewed and reconciled on the electronic medical record. Tobacco screening was accomplished and smoking cessation was advised when indicated. BMI was noted and diet/exercise modification was recommended for all patients following outside normal [facility] [address] [place] [address] PAIN MANAGEMENT CONSULTATION Name: CR CAZARES Room #: REG [facility].#: [id number] Admission: 06/10/19 ������������������ Attend Phys: Brie Arroyo Discharge: ������������������ Date of : 47 Report #: [id number] parameters. I reviewed with the patient today their responsibilities to safeguard prescription medications, reviewed their responsibility to utilize medications only as prescribed by the physician. They are to seek and receive pain medications only from 1 physician group ( [facility]). They are to use 1 pharmacy and keep the clinic informed if they change pharmacies. Their responsibilities include making followup visits in a timely fashion and to avoid abrupt discontinuation of medication usage. Their responsibilities further include bringing their medications (bottles from the pharmacy with residual pills) to the visit for possible confirmation of pill counts and the patient understands it is their responsibility to submit to random drug screens to ensure both that the medications prescribed are present, and that no other controlled substances are present. All prescriptions provided today were generated electronically. PLAN: 1. We discussed treatment options with the patient today. The patient tells me that the medications are beneficial for controlling some of his pain as well as the epidurals. He will schedule an epidural in the near future. He will have to be off his Xarelto for this epidural, but they do give him much benefit. 2. Prescription given today for his oxycodone 7.5/325 four times a day. This places the patient at 45 morphine milligram equivalents according to the CDC guidelines. We have given the patient 2 months of medications today. 3. The patient is not needing his gabapentin refilled today, but will at his next appointment. 4. Urine specimen was collected and sent for random drug screen. 5. Dr. Inder Jha did see the patient and collaborated care today. ��������������������������������������������� <ELECTRONICALLY SIGNED> ���������������������������������������� By: Brie Arroyo ��������������������������������������������� 06/14/19 0757 [id number] Brie Arroyo /sunni
== END ==
LOC: PAIN 06:42
DX: M54.16 Radiculopathy, lumbar region (principal); F41.9 Anxiety disorder, unspecified; G89.29 Other chronic pain; Z79.891 Long term (current) use of opiate analgesic

== ENCOUNTER → 2019-08-12 | Outpatient (CLI) | payer MEDICARE ==
[~2019-08-12] VITALS: Ht 177.8 cm; Wt 83.5 kg
[~2019-08-12] MED LIST changes: +NEURONTIN 300M300 M2 PO; +NEURONTIN300 MG PO
[2019-08-12 11:34] VITALS: BP 121/65
--- NOTE | 2019-08-12 11:37 | NUR ---
Pain Clinic Assessment: 1. History of Osteoarthritis: YES History of Rheumatoid Arthritis: Not Applicable 2. Height: 5 ft. 10 in. 177.8 cm. Weight: 184.0 lb. oz. 83.462 kg. Patient's BMI: 26.4 3. Vital Signs: BP: 121/65 Pulse: 54 Resp: 18 Temp: 02 Sat: 97 ECG Mon: 4. Pain Intensity: 8-9 5. Fall Risk: Dizziness: Y Needs help standing or walking: N Fallen in the last 3 months: N Fall risk comments: 6. Patient on Blood Thinner: xarelto 7. History of Hypertension: Y 8. Opioid Therapy greater than 6 weeks: Y Opiate Contract Signed: 06/12/16 9. Risk Assessment Tool Provided: 7 mod risk 10. Functional Assessment Tool: 62 11. Recreational Drug Use: Never Drug Type: Tobacco Use: Current Every Day Smoker Tobacco Type: Amount or Packs/day: How Many Years: Alcohol Use: Past use Frequency: Quant:
--- NOTE | 2019-08-15 08:33 | HPC ---
[facility] [place] [address] PAIN MANAGEMENT CONSULTATION Name: CR CAZARES Room #: [facility] Palm#: [id number] Admission: 08/12/19 Attend Phys: Brie Arroyo Discharge: Date of : 47 Report #: [id number] THIS REPORT FOR: //name// CC: Brie Mckenna DATE OF SERVICE: 08/12/2019 CHIEF COMPLAINT: Low back pain with lumbar radiculopathy. HISTORY OF PRESENT ILLNESS: This is a very pleasant 74-year-old gentleman who returns to the pain clinic today for refill of his medications that he uses to help treat his ongoing low back pain and lumbar radiculopathy. He reports a pain score of 8-9 today because he has been traveling quite a bit and sitting in a car. He informs me that is a higher number than his normal average. He says because his pain is worse with prolonged sitting and standing, but better with his medication and walking. It is a constant, aching, sharp pain. He feels that the oxycodone is very beneficial in controlling his pain as well as the gabapentin. He is requesting refills of those today. ALLERGIES: No known drug allergies. CURRENT LIST OF MEDICATIONS: Oxycodone 7.5/325 q.i.d. p.r.n., buspirone 10 mg daily, gabapentin 300 mg b.i.d., Prilosec 20 mg daily, lisinopril 2.5 mg at bedtime, metoprolol 50 mg daily, spironolactone 25 mg b.i.d., isosorbide 40 mg t.i.d., Xarelto 20 mg daily, hydralazine 100 mg t.i.d., Lasix 20 mg daily, Glucophage 500 mg daily, Januvia 100 mg daily, Amaryl 2 mg b.i.d., paroxetine 40 mg daily. PQRS: 1. The patient has a history of osteoarthritis involving his knees and lumbar spine. Denies any rheumatoid arthritis. 2. Height is 5 feet 10 inches, weight is 184, BMI is 26. 3. Vital signs blood pressure 121/65, pulse is 54, respirations 18, oxygen sat is 97. 4. Pain score 8-9. 5. Complains of slight dizziness, but does not need help walking or standing, has not fallen in the last 3 months. 6. The patient is on Xarelto for blood thinner and also takes medicine for hypertension. 7. Opioid therapy is greater than 6 weeks; therefore, an opioid signed contract is on the chart. Risk assessment is moderate. Functional assessment 62/70. 8. Recreational drug use, he denies. He is a current smoker of 10-12 cigarettes a day and does not use alcohol. [address] [address] PAIN MANAGEMENT CONSULTATION Name: CR CAZARES Room #: REG [facility]#: [id number] Admission: 08/12/19 Attend Phys: Brie Arroyo Discharge: Date of : 47 Report #: [id number] According to the prescription monitoring system, the patient is filling appropriately for his medication and is due to fill those today. There is a recent drug screen on the chart as well that is appropriate for his medications. PHYSICAL EXAMINATION: GENERAL: This is a well-developed, well-nourished, well-hydrated, 74-year-old gentleman who appears his stated age, placing his current pain score at 8-9 today. He is alert and orientated. HEENT: Normocephalic, atraumatic. Extraocular eye muscles are intact. Mucous membranes are moist. EXTREMITIES: Lower extremity pain radiates from his lumbar spine down the posterior aspect of his leg bilaterally following the L5-S1 dermatomal distribution. His lower extremity strength judged to be 5/5 with all major muscle groups, equal strength and tone. He walks with a slightly antalgic gait. IMPRESSION: 1. Chronic pain treated with medical management using opioids. 2. Lumbar radiculopathy following the L5-S1 dermatomal distribution. 3. Anxiety. 4. Chronic pain syndrome. 5. Chronic low back pain. We reviewed the fact that opiate medications are being used to provide analgesia adequate to support activities of daily living, not attempting to achieve a specific pain score on the 0-10 Visual Analog Scale. The current opiate medications are providing sufficient analgesia to allow the patient to participate in activities of daily living. The patient is not exhibiting any aberrant behavior suggestive of drug diversion. The patient is not having any adverse reactions to medications. The patient is not suffering from daytime somnolence or mental acuity changes. The patient is managing opiate-induced constipation with appropriate ihsl-tcl-gozegup agents and dietary considerations. The patient was counseled on concern for caution with operating a motor vehicle while using opiate medications. A physical exam was performed and the patient's functional status was evaluated. All patients with back pain were advised against the bed rest greater than 4 days and were advised to return to normal activities. Pain score assessment was noted and the treatment plan was reviewed with the patient. All current medications, both prescribed and OTC were reviewed and reconciled on the electronic medical record. Tobacco screening was accomplished and smoking cessation was advised when indicated. BMI was noted and diet/exercise modification was recommended for all patients following outside normal parameters. I reviewed with the patient today their responsibilities to safeguard prescription medications, reviewed their responsibility to utilize medications [facility] [address] [place] [address] PAIN MANAGEMENT CONSULTATION Name: CR CAZARES Room #: REG [facility] Palm#: [id number] Admission: 08/12/19 Attend Phys: Brie Arroyo Discharge: Date of : 47 Report #: [id number] only as prescribed by the physician. They are to seek and receive pain medications only from 1 physician group ( [facility]). They are to use 1 pharmacy and keep the clinic informed if they change pharmacies. Their responsibilities include making followup visits in a timely fashion and to avoid abrupt discontinuation of medication usage. Their responsibilities further include bringing their medications (bottles from the pharmacy with residual pills) to the visit for possible confirmation of pill counts and the patient understands it is their responsibility to submit to random drug screens to ensure both that the medications prescribed are present, and that no other controlled substances are present. All prescriptions provided today were generated electronically. PLAN: 1. We discussed treatment options with the patient today. The patient finds his oxycodone very beneficial and denies problems with constipation and scripts given for #120 for release today, 4-week. 2. Gabapentin 300 mg b.i.d., #180 with one additional refill. This is a 3-month mail off prescription that he will mail to [facility]. 3. Gabapentin 300 mg, #60. This is to be filled locally while he is awaiting his 90-day supply since he is completely out of his gabapentin. 4. The patient is seen in collaboration with Dr. Inder Jha today who did see the patient as well. <ELECTRONICALLY SIGNED> By: Brie Arroyo 08/15/19 0833 [id number] Brie Arroyo /nt
== END ==
LOC: PAIN 06:57
DX: M54.16 Radiculopathy, lumbar region (principal); F41.9 Anxiety disorder, unspecified; G89.4 Chronic pain syndrome; M54.5 Low back pain; Z79.899 Other long term (current) drug therapy

== ENCOUNTER → 2019-10-12 | Outpatient (CLI) | payer MEDICARE ==
[~2019-10-12] VITALS: Ht 177.8 cm; Wt 81.6 kg
[2019-10-12 11:21] VITALS: BP 120/70
--- NOTE | 2019-10-12 11:42 | NUR ---
Pain Clinic Assessment: 1. History of Osteoarthritis: HANDS SPINE History of Rheumatoid Arthritis: DENIES 2. Height: 5 ft. 10 in. 177.8 cm. Weight: 180.0 lb. oz. 81.648 kg. Patient's BMI: 25.8 3. Vital Signs: BP: 120/70 Pulse: 63 Resp: 16 Temp: 02 Sat: 100 ECG Mon: 4. Pain Intensity: 8 5. Fall Risk: Dizziness: N Needs help standing or walking: N Fallen in the last 3 months: N Fall risk comments: 6. Patient on Blood Thinner: xarelto 7. History of Hypertension: Y 8. Opioid Therapy greater than 6 weeks: Y Opiate Contract Signed: 06/12/16 9. Risk Assessment Tool Provided: 7 mod risk 10. Functional Assessment Tool: 62 11. Recreational Drug Use: Never Drug Type: Tobacco Use: Current Every Day Smoker Tobacco Type: Cigarettes Amount or Packs/day: 0.5 How Many Years: 60 Alcohol Use: Past use Frequency: Quant:
--- NOTE | 2019-10-17 19:29 | HPC ---
[facility] [place] [address] PAIN MANAGEMENT CONSULTATION Name: CR CAZARES Room #: REG MANUELA Palm#: [id number] Admission: 10/12/19 Attend Phys: Davide Jha MD Discharge: Date of : 47 Report #: [id number] THIS REPORT FOR: //name// CC: Davide Mckenna DATE OF SERVICE: 10/12/2019 CHIEF COMPLAINT: Low back pain with numbness and tingling. HISTORY: The patient is a pleasant gentleman who has been followed in the pain clinic because of chronic pain. He suffers from lumbar radiculopathy. He has undergone epidural steroid injections in the past and found these helpful. He has noticed that over the last few weeks, more pain and discomfort. He has noted increased discomfort while sitting in his car. He has undergone epidural injections in the past. Given that it is nearing the holidays he would like to undergo another injection. These have been beneficial. He is looking forward to some relief of his pain. He continues to take medications as prescribed. ALLERGIES: No known drug allergies. CURRENT MEDICATIONS: Oxycodone 7.5 mg/325 mg q.i.d., buspirone 10 mg, gabapentin 300 mg b.i.d., Prilosec 20 mg, lisinopril 2.5 mg at bedtime, metoprolol 50 mg daily, spironolactone 25 mg b.i.d., isosorbide 40 mg t.i.d., Xarelto 20 mg, hydralazine 100 mg t.i.d., Lasix 20 mg, Glucophage 500 mg, 2 Januvia 100 mg, Amaryl 2 mg b.i.d., paroxetine 40 mg daily. PAIN CLINIC ASSESSMENT AND PQRS: 1. The patient does have complaints of osteoarthritic pain in his hands as well as his spine. He is not being treated for rheumatoid arthritis. 2. Height 5 feet 10 inches, weight 180 pounds, BMI is 25.8. 3. Vital signs: Blood pressure 120/70, pulse 63, respiratory rate 16, room air saturation is 100%. 4. Pain intensity 06/25. 5. Fall risk. The patient has not fallen in the last 3 months. 6. Blood thinner. The patient is on Xarelto, stopped this with the desire to undergo an injection today. 7. Hypertension. The patient is being treated for hypertension. 8. Opioids greater than 6 weeks. The patient receives medications from the pain clinic. 9. Risk assessment tool, moderate for opioid use. 10. Functional assessment tool, 62/70. 11. Recreational drug use: The patient denies. 12. Tobacco: The patient smokes half pack of cigarettes and has smoked for the last 60 years. 13. Alcohol. The patient denies frequent use of alcoholic beverages. [address] [address] PAIN MANAGEMENT CONSULTATION Name: CR CAZARES Room #: REG [facility]#: [id number] Admission: 10/12/19 Attend Phys: Davide Jha MD Discharge: Date of : 47 Report #: [id number] PHYSICAL EXAMINATION: GENERAL: The patient is a well-developed, well-nourished black male, appears his stated age. He is alert and oriented x 3. His affect is appropriate. Speech is fluent. HEENT: Normocephalic, atraumatic. Extraocular eye muscles intact. Sclerae nonicteric. Mucous membranes are moist. MUSCULOSKELETAL: Upper extremity muscle strength judged to be 5-/5 for the major muscle groups. The patient has pain and discomfort in lower portion of his back. Pain is radiating down the lumbar spine in the L5-S1 dermatomal distribution with more pain on the right. The patient walks with an antalgic gait. IMPRESSION: 1. Chronic pain with lumbar radiculopathy in the L5-S1 dermatomal distribution. 2. Chronic pain treated with complex medical management using opioids. 3. Anxiety. 4. Chronic pain syndrome. 5. Chronic low back pain. RECOMMENDATIONS: We discussed the treatment options with the patient. Risks and benefits of an epidural steroid injection were discussed. Possible complications of the procedure, which could include but are not limited to infection, worsening pain, no improvement in pain, bleeding, headache and the patient elects to proceed. PROCEDURE NOTE: The patient was taken to the procedure area. He was then assisted in getting on the examination table. His back was sterilely prepped with a Betadine solution. A 0.25% bupivacaine was infiltrated at the L5-S1 area. A 17-gauge Tuohy with loss of resistance technique at the L5-S1 area was provided. There was no CSF, heme or paresthesia. Total of 80 mg Depo-Medrol, 40 mg triamcinolone and 2 mL of 0.25% bupivacaine was injected. The patient had a fluoro time of 8 seconds. Pain score was 7 at the time of discharge. He will follow up in the future as needed. We would like to thank you for letting us participate in his care. We hope he continues to improve. <ELECTRONICALLY SIGNED> By: Davide Jha MD 10/17/19 [id number] Davide Jha MD /nt
== END | disposition home or self-care (01) ==
LOC: PAIN 07-20 06:53
DX: M54.16 Radiculopathy, lumbar region (principal); F41.9 Anxiety disorder, unspecified; G89.29 Other chronic pain; M19.90 Unspecified osteoarthritis, unspecified site; I10 Essential (primary) hypertension; F17.210 Nicotine dependence, cigarettes, uncomplicated; Z79.899 Other long term (current) drug therapy

== ENCOUNTER → 2019-12-14 | Outpatient (CLI) | payer MEDICARE ==
[~2019-12-14] VITALS: Ht 177.8 cm; Wt 87.0 kg
[2019-12-14 11:22] VITALS: BP 113/62
--- NOTE | 2019-12-14 11:35 | NUR ---
Pain Clinic Assessment: 1. History of Osteoarthritis: HANDS SPINE History of Rheumatoid Arthritis: DENIES 2. Height: 5 ft. 10 in. 177.8 cm. Weight: 191.8 lb. oz. 87.000 kg. Patient's BMI: 27.5 3. Vital Signs: BP: 113/62 Pulse: 122 Resp: 16 Temp: 02 Sat: 97 ECG Mon: 4. Pain Intensity: 8 5. Fall Risk: Dizziness: N Needs help standing or walking: N Fallen in the last 3 months: Y Fall risk comments: 6. Patient on Blood Thinner: xarelto 7. History of Hypertension: Y 8. Opioid Therapy greater than 6 weeks: Y Opiate Contract Signed: 06/12/16 9. Risk Assessment Tool Provided: 7 mod risk 10. Functional Assessment Tool: 62 11. Recreational Drug Use: Never Drug Type: Tobacco Use: Current Every Day Smoker Tobacco Type: Cigarettes Amount or Packs/day: 1/2 How Many Years: 65 Alcohol Use: Past use Frequency: Quant:
--- NOTE | 2019-12-23 08:39 | HPC ---
[facility] [place] [address] [place] [address] PAIN MANAGEMENT CONSULTATION Name: CR CAZARES Room #: REG EHSANChe Palm#: [id number] Admission: 12/14/19 Attend Phys: Davide Jha MD Discharge: Date of : 47 Report #: [id number] THIS REPORT FOR: cc: Johnson Mckenna MD, Stephen L. MD Brown, N. Wayne MD ~ THIS REPORT FOR: //name// CC: Davide Mckenna MD DATE OF SERVICE: 12/14/2019 CHIEF COMPLAINT: Low back pain that is going down the right thigh and occasionally down into the left leg. HISTORY: The patient is a 74-year-old gentleman who has been seen in the pain clinic because of lumbar radicular pain. He has undergone epidural steroid injections in the past. He has found them beneficial. At this point, he rates his pain as an 8/10. He had a recent fall on to his right hip about a week ago. He slipped on the ice. At this juncture, he would like to continue with conservative treatment. Continues to use Xarelto. He would like to continue with his oxycodone and gabapentin medications. He is here for renewal. ALLERGIES: No known drug allergies. CURRENT MEDICATIONS: Oxycodone 7.5 mg 1 p.o. q.i.d., buspirone 10 mg, gabapentin 300 mg b.i.d., Prilosec 20 mg, lisinopril 2.5 mg, metoprolol 50 mg, spironolactone 25 mg b.i.d., isosorbide 40 mg t.i.d., Xarelto 20 mg, hydralazine 100 mg t.i.d., Lasix 40 mg, Glucophage 500 mg, Januvia 100 mg, Amaryl 2 mg b.i.d., and paroxetine 40 mg. PAIN CLINIC ASSESSMENT/PQRS: 1. The patient does have a history of osteoarthritic complaints in his hands as well as in his spine. Denies treatment for rheumatoid arthritis. 2. Height 5 feet 10 inches, weight 191 pounds, BMI is 27.5. 3. Vital Signs: Blood pressure 113/62, pulse 122, respiratory rate 16, room air saturation 97%. 4. Pain intensity, 06/25. 5. Fall risk. The patient fell on ice few days ago. 6. Blood thinner. The patient is on a blood thinning medication, Xarelto. 7. Hypertension. The patient is being treated for hypertension. 8. Opioids greater than 6 weeks. The patient receives medication from one source the pain clinic. 9. Risk assessment tool, [place] [address] PAIN MANAGEMENT CONSULTATION Name: CR CAZARES Room #: REG CL Arpita#: [id number] Admission: 12/14/19 Attend Phys: Davide Jha MD Discharge: Date of : 47 Report #: [id number] 10. Functional assessment tool 62/70. 11. Recreational drug use: The patient denies. 12. Tobacco: The patient smokes daily one-half pack of cigarettes per day, has smoked for 65 years. 13. Alcohol. The patient denies frequent use of alcoholic beverages. PHYSICAL EXAMINATION: GENERAL: The patient is a well-developed, well-nourished black male, appears his stated age. He is alert and oriented x 3. His affect is appropriate. Speech is fluent. HEENT: Normocephalic, atraumatic. Extraocular eye muscles intact. Sclerae nonicteric. Mucous membranes moist. NECK: Without adenopathy or JVD. HEART: Regular rate. ABDOMEN: Nontender. EXTREMITIES: Upper extremity muscle strength 5-/5 for the major muscle groups in the upper extremity. Lower extremity, the patient has pain and discomfort that radiates down when problematic in the L5-S1 dermatomal distribution. The patient with somewhat of an antalgic gait. IMPRESSION: 1. Chronic pain with lumbar radicular pain in the L5-S1 dermatomal distribution. 2. Chronic pain treated with complex medical management using opioids. 3. Anxiety. 4. Chronic pain syndrome. 5. Chronic low back pain. RECOMMENDATIONS: We discussed treatment options with the patient. At this juncture, we will continue with his conservative approach. He will receive a renewal of his medications. Finds that the oxycodone 7.5 mg one p.o. q.4-6 hours, total of 120 tablets per month has been reissued. This is rewritten for the next 3 months. The patient will also continue with gabapentin 1 p.o. b.i.d. for the next 3 months. He will call us if he has any concerns. Should he consider undergoing an epidural steroid injection, he will stop his Xarelto. We would like to thank you for letting us participate in his care. We hope he continues to improve. <ELECTRONICALLY SIGNED> By: Davide Jha MD 12/23/19 0839 [id number] Davide Jha MD /PMT
== END ==
LOC: PAIN 06:57
DX: M54.5 Low back pain (principal); M79.605 Pain in left leg; G89.4 Chronic pain syndrome; F41.9 Anxiety disorder, unspecified; Z79.899 Other long term (current) drug therapy; Z79.891 Long term (current) use of opiate analgesic

== ENCOUNTER → 2020-02-29 | Outpatient (CLI) | payer MEDICARE ==
[~2020-02-29] VITALS: Ht 177.8 cm; Wt 84.0 kg
[2020-02-29 10:54] VITALS: BP 115/57
--- NOTE | 2020-02-29 11:06 | NUR ---
Pain Clinic Assessment: 1. History of Osteoarthritis: HANDS SPINE History of Rheumatoid Arthritis: DENIES 2. Height: 5 ft. 10 in. 177.8 cm. Weight: 185.2 lb. oz. 84.006 kg. Patient's BMI: 26.6 3. Vital Signs: BP: 115/57 Pulse: 60 Resp: 14 Temp: 02 Sat: 100 ECG Mon: 4. Pain Intensity: 8 5. Fall Risk: Dizziness: N Needs help standing or walking: N Fallen in the last 3 months: N Fall risk comments: 6. Patient on Blood Thinner: xarelto 7. History of Hypertension: Y 8. Opioid Therapy greater than 6 weeks: Y Opiate Contract Signed: 06/12/16 9. Risk Assessment Tool Provided: 7 mod risk 10. Functional Assessment Tool: 62 11. Recreational Drug Use: Never Drug Type: Tobacco Use: Current Every Day Smoker Tobacco Type: Amount or Packs/day: How Many Years: Alcohol Use: Past use Frequency: Quant:
--- NOTE | 2020-03-14 08:03 | HPC ---
[facility] [place] [address] PAIN MANAGEMENT CONSULTATION Name: CR CAZARES Room #: BASSEM MOSER Arpita#: [id number] Admission: 02/29/20 Attend Phys: Davide Jha MD Discharge: Date of : 47 Report #: [id number] THIS REPORT FOR: cc: Johnson Mckenna MD, Stephen L. MD Brown,Davide Crawford MD ~ CC: Davide Mckenna DATE OF SERVICE: 02/29/2020 CHIEF COMPLAINT: Back pain and right leg pain. HISTORY: The patient is a 75-year-old gentleman who has been followed in the pain clinic because of lumbar radiculopathy. An epidural steroid injection in the past has been beneficial. He rates his pain as an 8/10 at this juncture, He has returned today with the hopes of having his medications renewed. He has noticed that his pain has worsened. He has been unable to go out and exercise or move around because of the COVID-19 pandemic. The patients have been asked to stay inside and isolates themselves. Because of that, he has noted some worsening of his pain. He has pain in both legs. Describes it as a sharp discomfort with aching characteristics. Standing, bending and sitting can be problematic as well. Notes that sometimes elevating his legs can be helpful. Walking is more beneficial. He feels that the oxycodone and gabapentin medications are helpful. He would like to renew these medications. ALLERGIES: No known drug allergies. CURRENT MEDICATIONS: Oxycodone 7.5 mg 1 p.o. q.i.d., buspirone 10 mg, gabapentin 300 mg b.i.d., Prilosec 20 mg, lisinopril 2.5 mg, metoprolol 50 mg, spironolactone 25 mg b.i.d., isosorbide 40 mg t.i.d., Xarelto 20 mg, hydralazine 100 mg t.i.d., Lasix 40 mg, Glucophage 500 mg, Januvia 100 mg, Amaryl 2 mg b.i.d., paroxetine 40 mg. PAIN CLINIC ASSESSMENT AND PQRS: 1. The patient has a history of osteoarthritis complaints in his hands as well as in his spine. He denies treatment for rheumatoid arthritis. 2. Height 5 feet 10 inches, weight 185 pounds, BMI is 26.6. 3. Vital signs: Blood pressure 115/57, pulse 60, respiratory rate 16, room air saturations 100%. 4. Pain intensity, 06/25. 5. Fall history. The patient has not fallen. 6. Blood thinner. The patient is on Xarelto. 7. History of hypertension. The patient is being treated for hypertension. 8. Opioids greater than 6 weeks. The patient receives [place] [address] PAIN MANAGEMENT CONSULTATION Name: CR CAZARES [id number] Admission: 02/29/20 Attend Phys: Davide Jha MD Discharge: Date of : 47 Report #: [id number] 9. Risk assessment tool 7, moderate risk. 10. Functional assessment tool, /70. 11. Recreational drug use. The patient denies. 12. Tobacco. The patient is a current smoker. 13. Alcohol. The patient denies frequent use of alcoholic beverages. PHYSICAL EXAMINATION: GENERAL: The patient is a well-developed, well-nourished, black male. Appears his stated age. He is alert and oriented x 3. His affect is appropriate. Speech is fluent. HEENT: Normocephalic, atraumatic. Extraocular eye muscles intact. Sclerae nonicteric. Mucous membranes are moist. The patient is wearing a mask. NECK: Without adenopathy or JVD. HEART: Regular rate. ABDOMEN: Nontender. EXTREMITIES: Upper extremity muscle strength 5-/5 for the major muscle groups in the upper extremity. The patient has pain and discomfort in lower portion of his back with pain that radiates down the L5-S1 dermatomal distribution involving his legs. He has a slight antalgic gait, which is slow. IMPRESSION: 1. Chronic pain in the lumbar spine with the L5-S1 dermatomal distribution. 2. Chronic pain, treated with complex medical management using opioids. 3. Anxiety. 4. Chronic pain syndrome. 5. Chronic low back pain. RECOMMENDATIONS: We discussed treatment options with the patient. The patient feels his medications are helpful. He is less active because of staying inside. He is sheltering in because of the coronavirus pandemic. He feels that his medications are beneficial. He would like to continue their use. He is aware that opioid medications can cause constipation. They can also cause some confusion. He is able to think clearly. A script for his medications have been written. He will continue with gabapentin 300 mg 1 p.o. b.i.d., oxycodone 7.5 mg 1 p.o. q.6 hours p.r.n. A script for the next 3 months of his medications have been provided. We would like to thank you for letting us participate in his care. We hope he continues to improve. <ELECTRONICALLY SIGNED> By: Davide Jha MD 03/14/20 0803 [id number] Davide Jha MD /JUANJOSE
== END ==
LOC: PAIN 08:38
DX: M54.5 Low back pain (principal); M79.604 Pain in right leg; G89.4 Chronic pain syndrome; F41.9 Anxiety disorder, unspecified; F11.20 Opioid dependence, uncomplicated; F17.200 Nicotine dependence, unspecified, uncomplicated; Z79.1 Long term (current) use of non-steroidal anti-inflammatories (NSAID); Z79.01 Long term (current) use of anticoagulants; Z79.899 Other long term (current) drug therapy

== ENCOUNTER → 2020-05-30 | Outpatient (CLI) | payer MEDICARE ==
[~2020-05-30] VITALS: Ht 177.8 cm; Wt 79.7 kg
[2020-05-30 13:53] VITALS: BP 120/73
--- NOTE | 2020-05-30 14:07 | NUR ---
Pain Clinic Assessment: 1. History of Osteoarthritis: HANDS SPINE History of Rheumatoid Arthritis: DENIES 2. Height: 5 ft. 10 in. 177.8 cm. Weight: 175.6 lb. oz. 79.652 kg. Patient's BMI: 25.2 3. Vital Signs: BP: 120/73 Pulse: 60 Resp: 16 Temp: 02 Sat: 99 ECG Mon: 4. Pain Intensity: 9 5. Fall Risk: Dizziness: N Needs help standing or walking: N Fallen in the last 3 months: N Fall risk comments: 6. Patient on Blood Thinner: xarelto 7. History of Hypertension: Y 8. Opioid Therapy greater than 6 weeks: Y Opiate Contract Signed: 06/12/16 9. Risk Assessment Tool Provided: 7 mod risk 10. Functional Assessment Tool: 62 11. Recreational Drug Use: Never Drug Type: Tobacco Use: Current Every Day Smoker Tobacco Type: Amount or Packs/day: 10/DAY How Many Years: Alcohol Use: Past use Frequency: Quant:
== END | disposition home or self-care (01) ==
LOC: PAIN 07:04
PROVIDERS: ATTEND Anesthesiology Pain Medicine
DX: M54.16 Radiculopathy, lumbar region (principal); G89.29 Other chronic pain; F17.210 Nicotine dependence, cigarettes, uncomplicated; Z98.890 Other specified postprocedural states; Z79.899 Other long term (current) drug therapy

== ENCOUNTER → 2020-08-22 | Outpatient (CLI) | payer MEDICARE ==
[~2020-08-22] VITALS: Ht 177.8 cm; Wt 77.5 kg
[2020-08-22 09:38] VITALS: BP 122/67
--- NOTE | 2020-08-22 09:50 | NUR ---
Pain Clinic Assessment: 1. History of Osteoarthritis: HANDS SPINE History of Rheumatoid Arthritis: DENIES 2. Height: 5 ft. 10 in. 177.8 cm. Weight: 170.8 lb. oz. 77.474 kg. Patient's BMI: 24.5 3. Vital Signs: BP: 122/67 Pulse: 60 Resp: 14 Temp: 02 Sat: 100 ECG Mon: 4. Pain Intensity: 9 5. Fall Risk: Dizziness: N Needs help standing or walking: N Fallen in the last 3 months: N Fall risk comments: 6. Patient on Blood Thinner: xarelto 7. History of Hypertension: Y 8. Opioid Therapy greater than 6 weeks: Y Opiate Contract Signed: 06/12/16 9. Risk Assessment Tool Provided: 4 mod risk 10. Functional Assessment Tool: 11. Recreational Drug Use: Never Drug Type: Tobacco Use: Current Every Day Smoker Tobacco Type: Cigarettes Amount or Packs/day: 1/2 pack How Many Years: Alcohol Use: Past use Frequency: Quant:
--- NOTE | 2020-08-24 07:31 | HPC ---
[facility] [address] [place] [address] PAIN MANAGEMENT CONSULTATION Name: CR CAZARES [facility] [id number] Admission: 08/22/20 Attend Phys: Brie Arroyo Discharge: Date of : 47 Report #: [id number] CC: Brie Mckenna DATE OF SERVICE: 08/22/2020 CHIEF COMPLAINT: Low back pain and right leg pain. HISTORY OF PRESENT ILLNESS: This is a very pleasant 75-year-old gentleman who returns to the pain clinic today for refill of his opioid medications. He reports a pain score quite elevated today at 9/10. He states he and his are moving old television to discard in their house. They were quite heavy and he knows that he overdid that this past few days. Today, he is stating he has pain for that increased work and heavy activity in his lower back, especially. So today, he rates his pain at a 9/10. It is an aching, sharp pain. He believes that this will calm down in the next few days and he will be back to his normal pain that is usually treated quite well with his oxycodone and occasional lumbar epidural steroid injections. His last injection was in May from Dr. Jha. He thought it was very beneficial helping at least 60% for several months. Today, he states that the medications as well as resting have been beneficial, which is what his plan is for the next few days to let his back recuperate. Today, he is requesting refills of his oxycodone. ALLERGIES: No known drug allergies. CURRENT LIST OF MEDICATIONS: Oxycodone 7.5/325 p.r.n., buspirone, Prilosec, lisinopril, metoprolol, Aldactone, isosorbide, Xarelto, hydralazine, Lasix, metformin, Januvia, Amaryl, and paroxetine. PQRS: 1. He has a history of osteoarthritis in his hands and spine. Denies any rheumatoid arthritis. 2. Height is 5 feet 10 inches, weight is 170, BMI is 24. 3. Vital signs; blood pressure 122/67, pulse is 60, respirations 14, oxygen sat is 100, pain score is 9/10. 4. Fall risk. Denies dizziness, does not need help walking or standing, has not fallen in the last 3 months. 5. The patient is on Xarelto as well as medicines for hypertension. Opioid therapy is greater than 6 weeks; therefore, an opioid signed contract is on the chart. Risk assessment is moderate. Functional assessment is 38/70. 5. Recreational drug use, he denies. He is a current smoker of half a pack of cigarettes a day and does not drink alcohol. According to the prescription monitoring system, the patient is filling appropriately for his medications, filling them in a timely fashion. His morphine milliequivalent is 45 MMEs per day and we will check a random drug screen on this patient today. PHYSICAL EXAMINATION: GENERAL: This is alert and orientated, well-developed, well-nourished 75-year-old gentleman who appears his stated age, placing his current pain score at 9/10. HEENT: Normocephalic, atraumatic. Extraocular eye muscles are intact. Sclerae are nonintrinsic. He is wearing a mask and glasses. NECK: Without adenopathy or JVD. EXTREMITIES: The patient has discomfort in the lower portion of his lumbosacral region that radiates down the L5-S1 dermatomal distribution into his bilateral legs. He has a slightly antalgic gait. He moves from the standing position independently, though slowly and does use the armrest. His upper and lower extremity strength is symmetrical at 5/5. IMPRESSION: 1. Chronic pain in the lumbar spine with L5 dermatomal distribution. 2. Lumbar radiculopathy. 3. Anxiety. 4. Low back pain. 5. Chronic pain treated with opioid medication management. We reviewed the fact that opiate medications are being used to provide analgesia adequate to support activities of daily living, not attempting to achieve a specific pain score on the 0-10 Visual Analog Scale. The current opiate medications are providing sufficient analgesia to allow the patient to participate in activities of daily living. The patient is not exhibiting any aberrant behavior suggestive of drug diversion. The patient is not having any adverse reactions to medications. The patient is not suffering from daytime somnolence or mental acuity changes. The patient is managing opiate-induced constipation with appropriate [id number]-[id number] agents and dietary considerations. The patient was counseled on concern for caution with operating a motor vehicle while using opiate medications. PLAN: 1. We discussed treatment options with the patient today. The patient finds his medications and periodic epidurals very beneficial despite his pain increased today from increased activity. We will continue his oxycodone 7.5/325, #120 to be filled today and 4-week and 8-week release. The patient will return in 3 months. These will be sent electronically by Dr. Inder Jha. 2. We did discuss his increase in pain. If this becomes problematic, I encouraged him to call for an appointment for an epidural steroid injection and advised him that he would have to stop his Xarelto as he had in the past. The patient verbalizes understanding. 3. He denies any daytime somnolence as a result of his medication or constipation issues. The patient is seen today in collaboration with Dr. Inder Jha. <ELECTRONICALLY SIGNED> By: Brie Arroyo 08/24/20 0731 [id number] Brie Arroyo /sunni
== END ==
LOC: PAIN 06:37
PROVIDERS: ATTEND Clinical Nurse Specialist Adult Health
DX: M54.16 Radiculopathy, lumbar region (principal); M79.604 Pain in right leg; F41.9 Anxiety disorder, unspecified; F11.20 Opioid dependence, uncomplicated; Z79.899 Other long term (current) drug therapy

== ENCOUNTER → 2020-11-23 | Outpatient (CLI) | payer MEDICARE ==
[~2020-11-23] VITALS: Ht 177.8 cm; Wt 79.8 kg
[2020-11-23 11:23] VITALS: BP 145/69
--- NOTE | 2020-11-23 11:56 | NUR ---
Pain Clinic Assessment: 1. History of Osteoarthritis: HANDS SPINE History of Rheumatoid Arthritis: DENIES 2. Height: 5 ft. 10 in. 177.8 cm. Weight: 176.0 lb. oz. 79.833 kg. Patient's BMI: 25.3 3. Vital Signs: BP: 145/69 Pulse: 56 Resp: 16 Temp: 02 Sat: 100 ECG Mon: 4. Pain Intensity: 7 TO 8 5. Fall Risk: Dizziness: Needs help standing or walking: Fallen in the last 3 months: Fall risk comments: 6. Patient on Blood Thinner: xarelto 7. History of Hypertension: Y 8. Opioid Therapy greater than 6 weeks: Y Opiate Contract Signed: 06/12/16 9. Risk Assessment Tool Provided: 4 mod risk 10. Functional Assessment Tool: 11. Recreational Drug Use: Never Drug Type: Tobacco Use: Current Every Day Smoker Tobacco Type: Amount or Packs/day: CUT BACK How Many Years: Alcohol Use: Past use Frequency: Quant:
== END ==
LOC: PAIN 06:56
PROVIDERS: ATTEND Anesthesiology Pain Medicine
DX: G89.4 Chronic pain syndrome (principal); F41.9 Anxiety disorder, unspecified; F17.210 Nicotine dependence, cigarettes, uncomplicated; Z79.891 Long term (current) use of opiate analgesic

== ENCOUNTER → 2021-02-15 | Outpatient (CLI) | payer MEDICARE ==
[~2021-02-15] VITALS: Ht 177.8 cm; Wt 77.7 kg
[2021-02-15 13:52] VITALS: BP 116/60
--- NOTE | 2021-02-15 14:07 | NUR ---
Pain Clinic Assessment: 1. History of Osteoarthritis: HANDS SPINE History of Rheumatoid Arthritis: DENIES 2. Height: 5 ft. 10 in. 177.8 cm. Weight: 171.4 lb. oz. 77.747 kg. Patient's BMI: 24.6 3. Vital Signs: BP: 116/60 Pulse: 60 Resp: 14 Temp: 02 Sat: 100 ECG Mon: 4. Pain Intensity: 6-7 5. Fall Risk: Dizziness: N Needs help standing or walking: N Fallen in the last 3 months: N Fall risk comments: 6. Patient on Blood Thinner: xarelto 7. History of Hypertension: Y 8. Opioid Therapy greater than 6 weeks: Y Opiate Contract Signed: 06/12/16 9. Risk Assessment Tool Provided: 4 mod risk 10. Functional Assessment Tool: 11. Recreational Drug Use: Never Drug Type: Tobacco Use: Current Every Day Smoker Tobacco Type: Amount or Packs/day: How Many Years: Alcohol Use: Past use Frequency: Quant:
== END ==
LOC: PAIN 06:52
PROVIDERS: ATTEND Anesthesiology Pain Medicine
DX: Z76.0 Encounter for issue of repeat prescription (principal); F41.9 Anxiety disorder, unspecified; F11.20 Opioid dependence, uncomplicated; F17.200 Nicotine dependence, unspecified, uncomplicated

== ENCOUNTER → 2021-05-15 | Outpatient (CLI) | payer MEDICARE ==
[~2021-05-15] VITALS: Ht 177.8 cm; Wt 73.7 kg
[2021-05-15 10:55] VITALS: BP 110/60
--- NOTE | 2021-05-15 11:01 | NUR ---
Pain Clinic Assessment: 1. History of Osteoarthritis: HANDS SPINE History of Rheumatoid Arthritis: DENIES 2. Height: 5 ft. 10 in. 177.8 cm. Weight: 162.4 lb. oz. 73.664 kg. Patient's BMI: 23.3 3. Vital Signs: BP: 110/60 Pulse: 59 Resp: 16 Temp: 02 Sat: 99 ECG Mon: 4. Pain Intensity: 8 5. Fall Risk: Dizziness: N Needs help standing or walking: N Fallen in the last 3 months: N Fall risk comments: 6. Patient on Blood Thinner: None 7. History of Hypertension: Y 8. Opioid Therapy greater than 6 weeks: Y Opiate Contract Signed: 06/12/16 9. Risk Assessment Tool Provided: 4 mod risk 10. Functional Assessment Tool: 11. Recreational Drug Use: Never Drug Type: Tobacco Use: Current Every Day Smoker Tobacco Type: Cigarettes Amount or Packs/day: 1/2 PACK How Many Years: Alcohol Use: Past use Frequency: Quant:
--- NOTE | 2021-05-16 08:00 | HPC ---
[facility] [place] [address] PAIN MANAGEMENT CONSULTATION Name: CR CAZARES Room #: [facility] Palm#: [id number] Admission: 05/15/21 Attend Phys: Brie Arroyo Discharge: Date of : 47 Report #: [id number] THIS REPORT FOR: cc: Johnson Mckenna MD, Stephen L. MD Hocker, Amanda CNS ~ DOC #: [id number] cc: Erich Jha MD, MD Brie Johnson, ASSOCIATE FIELD SERVICE ENGINEER DATE OF SERVICE: 05/15/2021 HISTORY OF PRESENT ILLNESS: As you know, this is a 76-year-old gentleman who returns to the pain clinic today for renewal of his medications. Today, the patient is reporting a pain score quite high at 8/10. He states that his pain has continued to be increasing, though he does not want to schedule an epidural steroid injection at this time. He is trying to hold off as long as possible. He does report he is still able to do things around the house and be as active as he would like, though he is having increasing pain while doing it. He is considering scheduling an epidural at his next medication refill visit. The patient continues to have ongoing low back pain that does radiate down his posterior legs to his knees, today greater in his right leg than the left. It is worse with standing still and bending. He believes movement is better for him as well as his medications. He describes his pain today as an aching, sharp, shooting pain that does have occasional numbness. He denies any constipation or daytime somnolence as a result of his medications. ALLERGIES: No known drug allergies. CURRENT LIST OF MEDICATIONS: Oxycodone, gabapentin, omeprazole, metoprolol, lisinopril, spironolactone, isosorbide, Xarelto, hydralazine, Lasix, metformin, Januvia, Amaryl and Paxil. PQRS: 1. 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 Denies any rheumatoid arthritis. 2. Height is 5 feet 10 inches, weight is 162, BMI is 23. This is down from 171 at his last visit. 3. Vital signs: Blood pressure 110/60, pulse is 59, respirations 16, oxygen sat is 99%. 4. Pain score is 8/10. 5. Denies dizziness, does not need help walking or standing, has not fallen in the last 3 months. 6. The patient is on a blood thinner of Xarelto and does take hypertensive medications. 7. Opioid therapy is greater than 6 weeks; therefore, an opioid signed contract is on the chart. Risk assessment is moderate. Functional assessment is 38/70. [address] [address] PAIN MANAGEMENT CONSULTATION Name: CR CAZARES Room #: [facility] Palm#: [id number] Admission: 05/15/21 Attend Phys: Brie Arroyo Discharge: Date of : 47 Report #: [id number] 8. Recreational drug use: He denies. He is currently smoking about 10 cigarettes a day, trying to decrease and has alcohol use in the past. According to the prescription monitoring system, the patient is filling appropriately in a timely fashion for his medications. He is due to fill this week. His morphine milliequivalent is 40 MME. PHYSICAL EXAMINATION: GENERAL: This is an alert and oriented, very pleasant -[place] gentleman of 76, rating his pain score today at 8/10. HEENT: Normocephalic, atraumatic. Extraocular eye muscles are intact. He is wearing a mask. NECK: Without adenopathy or JVD. EXTREMITIES: Upper extremity strength is symmetrical at 5/5. He has pain and discomfort in the lower portion of the lumbar spine, radiating down the L5-S1 dermatomal distribution into his legs bilaterally, today greater on the right than the left. He has a slightly antalgic gait. He is able to move from seated to standing position utilizing the armrest. IMPRESSION: 1. Lumbar radiculopathy at the L5-S1 dermatomal distribution. 2. Anxiety. 3. Chronic pain syndrome. 4. Chronic low back pain. 5. Medication management, utilizing opioid medications. PLAN: 1. We discussed treatment options with the patient today. We did discuss an epidural. It has been a year since his last injection and his pain scores continue to increase, though he states his function is still relatively the same. He will consider an epidural at his next visit for medication management. I did remind the patient he will need to be off his Xarelto if he schedules an appointment for an epidural. 2. We will continue him on his oxycodone 7.5/325, #120. Scripts will be sent electronically by Dr. Jha for today and 4-week and 8-week release. 3. The patient is not needing any gabapentin. He was given a year supply in February. He does find that helpful with his neuropathy and radiculopathy. 4. The patient will call for an appointment as needed. Time spent with the patient in consultation, reviewing pertinent imaging and recent studies, clinical notes and physician reports, physical examination and correlation of medical findings and medical documentation to determine possible treatment options 15 minutes. Time spent in preparation for appointment, reviewing prescription monitoring reports, reviewing previous records and proposed treatment options and reviewing current medications 5 minutes. Time spent preparing and sending electronic prescriptions with collaborating physician, Dr. Inder Jha, documentation of visit and plan of [facility] [address] [place] [address] PAIN MANAGEMENT CONSULTATION Name: SAGECR Willie Room #: [facility] Arpita#: [id number] Admission: 05/15/21 Attend Phys: Brie Arroyo Discharge: Date of : 47 Report #: [id number] treatment 5 minutes. Total time spent 25 minutes. MIO Corona/NASREEN/CHHAYA <ELECTRONICALLY SIGNED> By: Brie Arroyo 05/16/21 0800 [id number] Brie Arroyo /nt
== END ==
LOC: PAIN 07:06
PROVIDERS: ATTEND Clinical Nurse Specialist Adult Health
DX: M54.17 Radiculopathy, lumbosacral region (principal); G89.4 Chronic pain syndrome; F41.9 Anxiety disorder, unspecified; Z79.891 Long term (current) use of opiate analgesic

== ENCOUNTER → 2021-05-24 | Outpatient (CLI) | payer MEDICARE ==
[~2021-05-24] VITALS: Ht 177.8 cm; Wt 72.2 kg
[2021-05-24 10:13] VITALS: BP 108/61
--- NOTE | 2021-05-24 10:35 | NUR ---
Pain Clinic Assessment: 1. History of Osteoarthritis: HANDS SPINE History of Rheumatoid Arthritis: DENIES 2. Height: 5 ft. 10 in. 177.8 cm. Weight: 159.2 lb. oz. 72.213 kg. Patient's BMI: 22.8 3. Vital Signs: BP: 108/61 Pulse: 65 Resp: 14 Temp: 02 Sat: 100 ECG Mon: 4. Pain Intensity: 10 5. Fall Risk: Dizziness: N Needs help standing or walking: N Fallen in the last 3 months: N Fall risk comments: 6. Patient on Blood Thinner: None 7. History of Hypertension: Y 8. Opioid Therapy greater than 6 weeks: Y Opiate Contract Signed: 06/12/16 9. Risk Assessment Tool Provided: 4 mod risk 10. Functional Assessment Tool: 11. Recreational Drug Use: Never Drug Type: Tobacco Use: Current Every Day Smoker Tobacco Type: Cigarettes Amount or Packs/day: 1/2 PK/D How Many Years: Alcohol Use: Past use Frequency: Quant:
== END | disposition home or self-care (01) ==
LOC: PAIN 07:30
PROVIDERS: ATTEND Anesthesiology Pain Medicine
DX: M54.5 Low back pain (principal); G89.4 Chronic pain syndrome; I11.0 Hypertensive heart disease with heart failure; I50.9 Heart failure, unspecified; E11.9 Type 2 diabetes mellitus without complications; D64.9 Anemia, unspecified; E05.90 Thyrotoxicosis, unspecified without thyrotoxic crisis or storm; F41.9 Anxiety disorder, unspecified; F32.9 Major depressive disorder, single episode, unspecified; F17.210 Nicotine dependence, cigarettes, uncomplicated; Z98.890 Other specified postprocedural states; Z79.899 Other long term (current) drug therapy; Z79.891 Long term (current) use of opiate analgesic

== ENCOUNTER → 2021-08-14 | Outpatient (CLI) | payer MEDICARE ==
[~2021-08-14] VITALS: Ht 177.8 cm; Wt 78.0 kg
[~2021-08-14] MED LIST changes: +XARELTO10 M1 PO
[2021-08-14 10:58] VITALS: BP 134/84
--- NOTE | 2021-08-14 11:13 | NUR ---
Pain Clinic Assessment: 1. History of Osteoarthritis: HANDS SPINE History of Rheumatoid Arthritis: DENIES 2. Height: 5 ft. 10 in. 177.8 cm. Weight: 172.0 lb. oz. 78.019 kg. Patient's BMI: 24.7 3. Vital Signs: BP: 134/84 Pulse: 88 Resp: 14 Temp: 02 Sat: 97 ECG Mon: 4. Pain Intensity: 9 5. Fall Risk: Dizziness: N Needs help standing or walking: N Fallen in the last 3 months: Y Fall risk comments: 6. Patient on Blood Thinner: XARELTO 7. History of Hypertension: Y 8. Opioid Therapy greater than 6 weeks: Y Opiate Contract Signed: 06/12/16 9. Risk Assessment Tool Provided: 4 mod risk 10. Functional Assessment Tool: 11. Recreational Drug Use: Never Drug Type: Tobacco Use: Current Every Day Smoker Tobacco Type: Cigarettes Amount or Packs/day: 12 How Many Years: Alcohol Use: Yes Frequency: Quant:
== END ==
LOC: PAIN 07-31 07:02
PROVIDERS: ATTEND Clinical Nurse Specialist Adult Health
DX: G89.29 Other chronic pain (principal); M54.16 Radiculopathy, lumbar region; F41.9 Anxiety disorder, unspecified; M79.18 Myalgia, other site; Z79.899 Other long term (current) drug therapy

== ENCOUNTER → 2021-11-13 | Outpatient (CLI) | payer MEDICARE ==
[~2021-11-13] VITALS: Ht 177.8 cm; Wt 83.5 kg
[2021-11-13 10:38] VITALS: BP 114/72
--- NOTE | 2021-11-13 10:41 | NUR ---
Pain Clinic Assessment: 1. History of Osteoarthritis: HANDS SPINE History of Rheumatoid Arthritis: DENIES 2. Height: 5 ft. 10 in. 177.8 cm. Weight: 184.0 lb. oz. 83.462 kg. Patient's BMI: 26.4 3. Vital Signs: BP: 114/72 Pulse: 88 Resp: 16 Temp: 02 Sat: 97 ECG Mon: 4. Pain Intensity: 9 5. Fall Risk: Dizziness: N Needs help standing or walking: N Fallen in the last 3 months: N Fall risk comments: 6. Patient on Blood Thinner: XARELTO 7. History of Hypertension: Y 8. Opioid Therapy greater than 6 weeks: Y Opiate Contract Signed: 06/12/16 9. Risk Assessment Tool Provided: 4 mod risk 10. Functional Assessment Tool: 11. Recreational Drug Use: Never Drug Type: Tobacco Use: Current Every Day Smoker Tobacco Type: Cigarettes Amount or Packs/day: 1/2 pack How Many Years: Alcohol Use: No Frequency: Quant:
== END ==
LOC: PAIN 11-06 07:03
PROVIDERS: ATTEND Clinical Nurse Specialist Adult Health
DX: G89.29 Other chronic pain (principal); M54.16 Radiculopathy, lumbar region; F41.9 Anxiety disorder, unspecified; Z79.84 Long term (current) use of oral hypoglycemic drugs; Z79.899 Other long term (current) drug therapy